=== PATIENT | female | born 1995 | race African-American/Black ===

== ENCOUNTER 2016-09-09 23:25 | Emergency (ER) | payer BC ==
[2016-09-09 23:37] VITALS: BMI 22.5
--- NOTE | 2016-09-10 00:09 | PDOC ---
History of Present Illness <You Guevara - Last Filed: 09/10/16 00:17> - General History Source: Patient Exam Limitations: No Limitations - History of Present Illness Initial Comments: 09/10/16 00:23 Patient is a 21 year old female with no significant past medical history who presents to the ED with left ear pain since yesterday. Patient notes that the pain is inside the ear. She denies any recent swimming. She denies fever or chills. She denies nasal congestion or cough. <Fay aPng - Last Filed: 09/10/16 00:25> - General Chief Complaint: Ear Problem Stated Complaint: EAR PROBLEM Time Seen by Provider: 09/10/16 00:08 Past History - Psycho/Social/Smoking Cessation Hx Anxiety: No Suicidal Ideation: No Smoking Status: No Smoking History: Never smoked Number of Cigarettes Smoked Daily: 0 Hx Alcohol Use: No Drug/Substance Use Hx: No Substance Use Type: None <You Guevara - Last Filed: 09/10/16 00:17> <Fay Pang - Last Filed: 09/10/16 00:25> - Past Medical History Allergies/Adverse Reactions: Allergies Allergy/AdvReac Type Severity Reaction Status Date / Time No Known Allergies Allergy Verified 09/09/16 23:35 Home Medications: Ambulatory Orders Ciprofloxacin HCl/Dexameth [Ciprodex Otic Suspension] 4 drop BID #1 bottle Review of Systems - Review of Systems Able to Perform ROS?: Yes Comments:: 09/10/16 00:24 CONSTITUTIONAL: No fever, no chills, no fatigue EYES: No visual changes ENT: (+)left ear pain. No sore throat CARDIOVASCULAR: No chest pain, no palpitations RESPIRATORY: No cough, no SOB GI: No abdominal pain, no nausea, no vomiting, no constipation, no diarrhea GENITOURINARY: No dysuria, no frequency, no hematuria MUSCULOSKELETAL: No back pain, no joint pain, no myalgias SKIN: No rash NEURO: No headache <Fay Pang - Last Filed: 09/10/16 00:25> *Physical Exam - Vital Signs Last Vital Signs Temp Pulse Resp BP Pulse Ox 98.1 F 71 18 118/64 98 09/09/16 23:35 09/09/16 23:35 09/09/16 23:35 09/09/16 23:35 09/09/16 23:35 <You Guevara - Last Filed: 09/10/16 00:17> - Vital Signs Last Vital Signs Temp Pulse Resp BP Pulse Ox 98.1 F 71 18 118/64 98 09/09/16 23:35 09/09/16 23:35 09/09/16 23:35 09/09/16 23:35 09/09/16 23:35 - Physical Exam Comments: 09/10/16 00:24 CONSTITUTIONAL: Well-appearing; well-nourished; in no apparent distress HEAD: Normocephalic; atraumatic EYES: PERRL; EOM intact ENMT: (+)left ear mild tragus tenderness, edema and debri of the external auditory meatus,TM is normal; normal oropharynx NECK: Supple; non-tender; no cervical lymphadenopathy CARD: Normal S1, S2; no murmurs, rubs, or gallops RESP: Normal chest excursion with respiration; breath sounds clear and equal bilaterally; no wheezes, rhonchi, or rales ABD: Soft, non-distended; non-tender; no palpable organomegaly, no palpable hernias EXT: Normal ROM in all four extremities; non-tender to palpation; distal pulses intact SKIN: Warm, dry, no rash NEURO: No focal neurological deficiencies. <Fay Pang - Last Filed: 09/10/16 00:25> *DC/Admit/Observation/Transfer <You Guevara - Last Filed: 09/10/16 00:17> - Attestations Scribe Attestion: 09/10/16 00:25 Documentation prepared by CARLEEN Daniel, acting as medical staff assistant for You Guevara MD. <Fay Pang - Last Filed: 09/10/16 00:25> Diagnosis at time of Disposition: Otitis externa Qualifiers: Otitis externa type: unspecified type Laterality: left Chronicity: acute Qualified Code(s): H60.502 - Unspecified acute noninfective otitis externa, left ear - Discharge Dispostion Disposition: HOME Condition at time of disposition: Stable - Prescriptions Prescriptions: Ciprofloxacin HCl/Dexameth [Ciprodex Otic Suspension] 4 drop BID #1 bottle - Referrals Referrals: pmd, as needed [Other] - Patient Instructions Printed Discharge Instructions: DI for Otitis Externa
[2016-09-10 01:28] VITALS: BP 120/68; PULSE 68; TEMP 98
== END 2016-09-10 00:33 | disposition home or self-care (01) ==
LOC: JER 23:25
DX: H60.502 Unspecified acute noninfective otitis externa, left ear (principal)
CPT/HCPCS: 99282-25

== ENCOUNTER 2018-05-07 17:04 | Inpatient (IN) | payer BC ==
[2018-05-07 17:15] VITALS: BMI 21.6
--- NOTE | 2018-05-07 17:31 | PDOC ---
History of Present Illness - General History Source: Patient Exam Limitations: No Limitations - History of Present Illness Initial Comments: 05/07/18 18:10 The patient is a 22 year old female, with no significant past medical history, who presents to the emergency department with, 1 day of elevated white count and right lower quadrant pain. As per patient her symptoms onset at 3am as periumbilical pain now as RLQ with associated chills, nausea, diarrhea, lightheadedness. Patient endorses going to urgent care prior to her arrival at which time she received lab work depicting a WBC of 14.9. Patient was advised to report to the ED for further evaluation. She denies recent dysuria, frequency, urgency or hematuria. She denies recent chest pain or shortness of breath. Allergies: NKDA Past surgical history: None reported. Social history: Nonsmoker. Denies EtOH use and recreational drug use. <Jeremy Wilson - Last Filed: 05/07/18 21:13> <Darcie Miller - Last Filed: 05/07/18 22:19> - General Chief Complaint: Pain, Acute Stated Complaint: PCP SENT/ABDOMINAL PAIN Time Seen by Provider: 05/07/18 17:30 Past History <Jeremy Wilson - Last Filed: 05/07/18 21:13> - Past Medical History COPD: No Dialysis: No Disorders: No - Surgical History Cholecystectomy: No GI Surgery: No - Immunization History Immunization Up to Date: No - Suicide/Smoking/Psychosocial Hx Smoking Status: No Smoking History: Never smoked Have you smoked in the past 12 months: No Number of Cigarettes Smoked Daily: 0 Information on smoking cessation initiated: No Hx Alcohol Use: No Drug/Substance Use Hx: No Substance Use Type: None <Darcie Miller - Last Filed: 05/07/18 22:19> - Past Medical History Allergies/Adverse Reactions: Allergies Allergy/AdvReac Type Severity Reaction Status Date / Time No Known Allergies Allergy Verified 05/07/18 19:01 Home Medications: Ambulatory Orders NK [No Known Home Medication] 09/10/16 Review of Systems - Review of Systems Able to Perform ROS?: Yes Comments:: 05/07/18 18:11 CONSTITUTIONAL: Present: Chills. Absent: fever, no fatigue EYES: Absent: visual changes ENT: Absent: ear pain, no sore throat CARDIOVASCULAR: Absent: chest pain, no palpitations RESPIRATORY: Absent: cough, no SOB GI: Present: RLQ pain. Nausea, vomiting, diarrhea. Absent: no constipation GENITOURINARY: Absent: dysuria, no frequency, no hematuria MUSKULOSKELETAL: Absent: back pain, no arthralgia, no myalgia SKIN: Absent: rash NEURO: Present: Lightheadedness. Absent: headache All Other Systems: Reviewed and Negative <Jeremy Wilson - Last Filed: 05/07/18 21:13> *Physical Exam - Vital Signs Last Vital Signs Temp Pulse Resp BP Pulse Ox 98.7 F 88 18 113/63 100 05/07/18 17:12 05/07/18 17:12 05/07/18 17:12 05/07/18 17:12 05/07/18 17:12 - Physical Exam Comments: 05/07/18 18:12 GENERAL: Well developed, well nourished. Awake and alert. No acute distress. HEENT: Normocephalic, atraumatic. PERRLA, EOMI. No conjunctival pallor. Sclera are non- icteric. Moist mucous membranes. Oropharynx is clear. NECK: Supple. Full ROM. No JVD. Carotid pulses 2+ and symmetric, without bruits. No thyromegaly. No lymphadenopathy. CARDIOVASCULAR: Regular rate and rhythm. No murmurs, rubs, or gallops. Distal pulses are 2+ and symmetric. PULMONARY: No evidence of respiratory distress. Lungs clear to auscultation bilaterally. No wheezing, rales or rhonchi. +ABDOMINAL: RLQ tenderness. Soft. Non-distended. No rebound or guarding. No organomegaly. Normoactive bowel sounds. MUSCULOSKELETAL Normal range of motion at all joints. No bony deformities or tenderness. No CVA tenderness. EXTREMITIES: No cyanosis. No clubbing. No edema. No calf tenderness. SKIN: Warm and dry. Normal capillary refill. No rashes. No jaundice. NEUROLOGICAL: Alert, awake, appropriate. Cranial nerves 2-12 intact. No deficits to light touch and temperature in face, upper extremities and lower extremities. No motor deficits in the in face, upper extremities and lower extremities. Normoreflexic in the upper and lower extremities. Normal speech. Toes are down- going bilaterally. Gait is normal without ataxia. PSYCHIATRIC: Cooperative. Good eye contact. Appropriate mood and affect. <Jeremy Wilson - Last Filed: 05/07/18 21:13> - Vital Signs Last Vital Signs Temp Pulse Resp BP Pulse Ox 98.7 F 88 18 113/63 100 05/07/18 17:12 05/07/18 17:12 05/07/18 17:12 05/07/18 17:12 05/07/18 17:12 <Darcie Miller - Last Filed: 05/07/18 22:19> Moderate Sedation - Procedure Monitoring Vital Signs: Procedure Monitoring Vital Signs Temperature 98.7 F 05/07/18 17:12 Pulse Rate 88 05/07/18 17:12 Respiratory Rate 18 05/07/18 17:12 Blood Pressure 113/63 05/07/18 17:12 O2 Sat by Pulse Oximetry (%) 100 05/07/18 17:12 <VicaureliaJeremy larry - Last Filed: 05/07/18 21:13> - Procedure Monitoring Vital Signs: Procedure Monitoring Vital Signs Temperature 98.7 F 05/07/18 17:12 Pulse Rate 88 05/07/18 17:12 Respiratory Rate 18 05/07/18 17:12 Blood Pressure 113/63 05/07/18 17:12 O2 Sat by Pulse Oximetry (%) 100 05/07/18 17:12 <Darcie Miller - Last Filed: 05/07/18 22:19> ED Treatment Course - LABORATORY CBC & Chemistry Diagram: 05/07/18 16:20 05/07/18 16:20 - RADIOLOGY Radiograph Interpretation: 05/07/18 21:13 EXAM: CT abdomen and pelvis with IV contrast. Clinical indication: Rule out appendicitis. There are no prior studies available for comparison. Technique: Axial IV contrast-enhanced CT images of the abdomen and pelvis were obtained followed by coronal and sagittal reformats. Findings: The visualized portions of the lower thorax are within normal limits. There is no free intra-abdominal gas or fluid. The liver, gallbladder, adrenals, pancreas, and spleen are normal. There is no hydronephrosis or obvious renal calculi bilaterally. The bilateral kidneys are normal. There are some mildly prominent small bowel mesenteric lymph nodes measuring up to 0.9 cm in diameter. Otherwise, there are no enlarged abdominal or pelvic lymph nodes, by size criteria. The urinary bladder is unremarkable. There is an IUD within the uterus. The pelvic organs are otherwise grossly unremarkable, given limitations of CT for evaluating them. There is no significant intra-abdominal fat which makes separation of loops of bowel and identification of structures difficult. The appendix is not identified with certainty. Within the lower abdomen just to the right of the midline there is a 0.6 cm calcification which likely represents an appendicolith. This appears to be associated with a elongated soft tissue arising from the cecum. This is best appreciated on axial images 93 through 97. There appears to be a soft tissue abnormality distal to this which could represent a phlegmonous early complicated appendicitis.. The remainder of the bowel is grossly unremarkable. The visualized bony structures are unremarkable for the patient's age. Impression: The appendix is not identified with certainty due to lack of intra-abdominal fat and oral contrast. However, there appears to be an appendicolith within an elongated soft tissues structure which appears to arise from the cecum and likely represents the appendix. Distal to the appendicolith there is a probable phlegmonous area. These findings suggest acute complicated appendicitis. Recommend surgical consult and a targeted sonogram for further evaluation. One or more of the following dose reduction techniques were used: automated exposure control, adjustment of the mA and/or kV according to patient size, use of iterative reconstructive technique. Read by: Wil Rivas MD <Jeremy Wilson - Last Filed: 05/07/18 21:13> - LABORATORY CBC & Chemistry Diagram: 05/07/18 16:20 05/07/18 16:20 <Darcie Miller - Last Filed: 05/07/18 22:19> Medical Decision Making - Medical Decision Making 05/07/18 18:26 22 yo female sent from Urgent care for RLQ pain and elevated wbc 14.9 05/07/18 21:40 ct scan concerning for appendicitis case discussed with Dr Sky and pt will be admitted ,given antibiotics,IVF,NPO <Darcie Miller - Last Filed: 05/07/18 22:19> *DC/Admit/Observation/Transfer - Attestations Scribe Attestion: 05/07/18 18:13 Documentation prepared by Jeremy Wilson, acting as medical office technology instructor for Darcie Miller MD. <Jeremy Wilson - Last Filed: 05/07/18 21:13> - Discharge Dispostion Decision to Admit order: Yes <Darcie Miller - Last Filed: 05/07/18 22:19> Diagnosis at time of Disposition: Appendicitis Qualifiers: Appendicitis type: acute appendicitis Acute appendicitis type: unspecified acute appendicitis type Qualified Code(s): K35.80 - Unspecified acute appendicitis - Discharge Dispostion Condition at time of disposition: Stable
[2018-05-07] MEDS ORDERED: SODIUM CHLORIDE 1,000 ML IV STA (17:35)
[2018-05-07 18:32] LABS: BASO % 0.3 % (0-2.0); HEMATOCRIT 36.4 % (32.4-45.2); HEMOGLOBIN 12.1 GM/dL (10.7-15.3); LYMPH % 9.1 % (8-40); MCH 27.4 pg (25.7-33.7); MCHC 33.2 g/dl (32.0-36.0); MEAN CELL VOLUME 82.5 fl (80-96); MEAN PLT VOLUME 8.2 fl (7.5-11.1); MONO % 10.5 % (3.8-10.2); NEUT % 79.1 % (42.8-82.8); PLATELET COUNT 248 K/MM3 (134-434); RBC 4.41 M/mm3 (3.60-5.2); RDW 13.6 % (11.6-15.6); WHITE BLOOD COUNT 13.8 K/mm3 (4.0-10.0)
[2018-05-07 18:37] LABS: URINE APPEARANCE CLEAR; URINE BILIRUBIN NEGATIVE (<2.0 mg/dL); URINE COLOR STRAW; URINE GLUCOSE (UA) NEGATIVE (NEGATIVE); URINE KETONE NEGATIVE (NEGATIVE); URINE LEUK ESTERASE NEGATIVE (NEGATIVE); URINE NITRITE NEGATIVE (NEGATIVE); URINE PROTEIN NEGATIVE (NEGATIVE); URINE UROBILINOGEN NEGATIVE mg/dL (0.2-1.0)
[2018-05-07 18:55] LABS: ALBUMIN 4.1 g/dl (3.4-5.0); ALK PHOS 75 U/L (45-117); ANION GAP 8 MMOL/L (8-16); BILIRUBIN,TOTAL 0.4 mg/dL (0.2-1); BLOOD UREA NITROGEN 7 mg/dL (7-18); CALCIUM 8.8 mg/dL (8.5-10.1); CHLORIDE 104 mmol/L (98-107); CO2 27 mmol/L (21-32); CREATININE 0.9 mg/dL (0.55-1.3); GLUCOSE,RANDOM 82 mg/dL (74-106); LIPASE 194 U/L (73-393); POTASSIUM 4.1 mmol/L (3.5-5.1); SGOT/AST 15 U/L (15-37); SGPT/ALT 15 U/L (13-61); SODIUM 139 mmol/L (136-145); TOT PROT 8.3 g/dl (6.4-8.2)
[2018-05-07] MEDS ORDERED: PIPERACILLIN/TAZOB 3.375 GM 3.375 GM in DEXTROSE 5%-WATER - 50 ML IVPB ONE (21:20)
[2018-05-07] MEDS ORDERED: PIPERACILLIN/TAZOB 3.375 GM 3.375 GM/50 ML BAG IVPB ONE (21:59)
--- NOTE | 2018-05-07 22:16 | PN ---
Teaching Attending Note Name of Resident: Jana Ornelas ATTENDING PHYSICIAN STATEMENT I saw and evaluated the patient. I reviewed the resident's note and discussed the case with the resident. I agree with the resident's findings and plan as documented. SUBJECTIVE: Seen and examined; please see resident note for further historical information. Briefly, this is a 22 y/o female presenting with abdominal pain found to have complicated appendicitis on CT. Nothing makes pain better or worse, hasn't seen prior physician for this, no recent sgy. She is afebrile and hemodynamically stable. All her questions answered. 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 CT Abdomen/Pelvis prelim read shows the appendix not clearly identified but the apparent appearance of an appendolith within elongated soft tissue structure appearing to arise from the cecum and likely representing the appendiz. Distal to this is a probably phlegmonous area. These findings suggest complicated appendicitis and recommended surgical consult and targeted sonogram. ASSESSMENT AND PLAN: Patient presents with abdominal pain found to have complicated appendicitis 1) Complicated Appendicitis -Noted on imaging; labs reviewed. Hemodynamically stable. -Ultimate management per surgery. NPO, IVF, monitor on med surg. IV Zosyn, ID consult given antipseud coverage -Surgery contacted by ER; appreciate expert opinion. Defer management to their service -Pain control, nausea control, etc. JASON CHASE@75 -PRN replete -NPO -As tolerated Full Code
[2018-05-07] MEDS ORDERED: ACETAMINOPHEN 325 MG TABLET (FP) PO PRN (22:51)
--- NOTE | 2018-05-07 22:59 | HP ---
CHIEF COMPLAINT: bloating x 1 day PCP: HISTORY OF PRESENT ILLNESS: 22 y/o F with no significant PMH who presents to the ED c/o 1 day hx bloating which is a/w generalized abdominal pain. States that her sx started suddenly yesterday. Pain was not a/w nausea, vomiting, diarrhea, or other complaints. Denies SIMPSON, fever, chills, SOB, chest pain or pressure, or changes in urinary or bowel function during this time. Had a similar episode of bloating two weeks prior, however self-resolved. ER course was notable for: (1) zosyn 3.375g x1 (2) CTAP: suggestive of complicated appendicitis (3) Recent Travel: denies PAST MEDICAL HISTORY: none PAST SURGICAL HISTORY: none Social History: Smoking: denies Alcohol: denies Drugs: denies Family History: denies Allergies No Known Allergies Allergy (Verified 05/07/18 19:01) HOME MEDICATIONS: Home Medications Medication Instructions Recorded NK [No Known Home Medication] 09/10/16 REVIEW OF SYSTEMS CONSTITUTIONAL: Absent: fever, chills, diaphoresis, generalized weakness, malaise, loss of appetite, weight change HEENT: Absent: rhinorrhea, nasal congestion, throat pain, throat swelling, difficulty swallowing, mouth swelling, ear pain, eye pain, visual changes CARDIOVASCULAR: Absent: chest pain, syncope, palpitations, irregular heart rate, lightheadedness , peripheral edema RESPIRATORY: Absent: cough, shortness of breath, dyspnea with exertion, orthopnea, wheezing, stridor, hemoptysis GASTROINTESTINAL: +abdominal pain, bloating Absent: abdominal pain, abdominal distension, nausea, vomiting, diarrhea, constipation, melena, hematochezia GENITOURINARY: Absent: dysuria, frequency, urgency, hesitancy, hematuria, flank pain, genital pain MUSCULOSKELETAL: Absent: myalgia, arthralgia, joint swelling, back pain, neck pain SKIN: Absent: rash, itching, pallor HEMATOLOGIC/IMMUNOLOGIC: Absent: easy bleeding, easy bruising, lymphadenopathy, frequent infections ENDOCRINE: Absent: unexplained weight gain, unexplained weight loss, heat intolerance, cold intolerance NEUROLOGIC: Absent: headache, focal weakness or paresthesias, dizziness, unsteady gait, seizure, mental status changes, bladder or bowel incontinence PSYCHIATRIC: Absent: anxiety, depression, suicidal or homicidal ideation, hallucinations. PHYSICAL EXAMINATION Vital Signs - 24 hr 05/07/18 05/07/18 17:12 21:49 Temperature 98.7 F 98.4 F Pulse Rate 88 Pulse Rate [ 87 Right Apical] Respiratory 18 28 H Rate Blood Pressure 113/63 Blood Pressure 126/71 [Left] O2 Sat by Pulse 100 100 Oximetry (%) GENERAL: Pleasant. Awake, alert, and fully oriented, in no acute distress. Sitting up in bed HEAD: Normal with no signs of trauma. EYES: Pupils equal, round and reactive to light, extraocular movements intact, sclera anicteric, conjunctiva clear. EARS, NOSE, THROAT: Ears normal, nares patent, oropharynx clear without exudates. Moist mucous membranes. NECK: Normal range of motion, supple LUNGS: Breath sounds equal, clear to auscultation bilaterally. No wheezes, and no crackles. No accessory muscle use. HEART: Regular rate and rhythm, normal S1 and S2 without murmur, rub or gallop. ABDOMEN: Soft, +RLQ TTP, with mild rebound tenderness. normoactive bowel sounds LOWER EXTREMITIES: 2+ pt pulses, warm, well-perfused. No calf tenderness. No peripheral edema. NEUROLOGICAL: Cranial nerves II-XII intact. Normal speech. PSYCHIATRIC: Cooperative. Good eye contact. Laboratory Results 05/07/18 05/07/18 05/07/18 16:20 16:20 18:20 WBC 13.8 H RBC 4.41 Hgb 12.1 Hct 36.4 MCV 82.5 MCH 27.4 MCHC 33.2 RDW 13.6 Plt Count 248 MPV 8.2 Absolute Neuts (auto) 10.9 H Neutrophils % 79.1 Lymphocytes % 9.1 Monocytes % 10.5 H Eosinophils % 1.0 Basophils % 0.3 Nucleated RBC % 0 Sodium 139 Potassium 4.1 Chloride 104 Carbon Dioxide 27 Anion Gap 8 BUN 7 Creatinine 0.9 Creat Clearance w eGFR > 60 Random Glucose 82 Calcium 8.8 Total Bilirubin 0.4 AST 15 ALT 15 Alkaline Phosphatase 75 Total Protein 8.3 H Albumin 4.1 Lipase 194 Urine Nitrite Ur Leukocyte Esterase Urine HCG, Qual Negative CT Abdomen/Pelvis prelim : appendix not clearly identified but appendolith within elongated soft tissue structure, arising from the cecum and likely representing the appendix. Distal to this is a probable phlegmonous area. These findings suggest complicated appendicitis and recommended surgical consult and targeted sonogram. Abdom sono: completed, report pending EKG: ordered, pending ASSESSMENT/PLAN: 22 y/o F with no significant PMH who presents to the ED c/o 1 day hx bloating which is a/w generalized abdominal pain. #Complicated appendicitis -with elevated white ct, however without tachy, or hypotension -CTAP suggestive of complicated appendicitis, however f/u further imaging with abdom sono -IV LR 75 cc/hr -NPO, T+S, coags -will tx with zosyn 3.375g IVPB q6h -ID consult: Dr. Quinn -Tylenol PRN for pain #F/E/N IV LR 75 cc/hr continue to follow lytes NPO #PPX SCD's #Dispo med-surg Visit type - Emergency Visit Emergency Visit: Yes ED Registration Date: 05/07/18 Care time: The patient presented to the Emergency Department on the above date and was hospitalized for further evaluation of their emergent condition. - New Patient This patient is new to me today: Yes Date on this admission: 05/08/18 - Critical Care Critical Care patient: No
--- NOTE | 2018-05-07 23:41 | PDOC ---
*Physical Exam - Vital Signs Last Vital Signs Temp Pulse Resp BP Pulse Ox 98.4 F 87 28 H 126/71 100 05/07/18 21:49 05/07/18 21:49 05/07/18 21:49 05/07/18 21:49 05/07/18 21:49 ED Treatment Course - LABORATORY CBC & Chemistry Diagram: 05/07/18 16:20 05/07/18 16:20 - ADDITIONAL ORDERS Additional order review: Laboratory Results 05/07/18 05/07/18 05/07/18 18:20 18:20 16:20 Sodium 139 Potassium 4.1 Chloride 104 Carbon Dioxide 27 Anion Gap 8 BUN 7 Creatinine 0.9 Creat Clearance w eGFR > 60 Random Glucose 82 Calcium 8.8 Total Bilirubin 0.4 AST 15 ALT 15 Alkaline Phosphatase 75 Total Protein 8.3 H Albumin 4.1 Lipase 194 Urine Color Straw Urine Appearance Clear Urine pH 7.0 Ur Specific [place] 1.005 L Urine Protein Negative Urine Glucose (UA) Negative Urine Ketones Negative Urine Blood Negative Urine Nitrite Negative Urine Bilirubin Negative Urine Urobilinogen Negative Ur Leukocyte Esterase Negative Urine HCG, Qual Negative 05/07/18 16:20 RBC 4.41 MCV 82.5 MCHC 33.2 RDW 13.6 MPV 8.2 Neutrophils % 79.1 Lymphocytes % 9.1 Monocytes % 10.5 H Eosinophils % 1.0 Basophils % 0.3 - RADIOLOGY Radiology Studies Ordered: Category Date Time Status ABDOMEN & PELVIS CT WITH CONTR [CT] Stat CT Scan 05/07/18 19:08 Taken - Medications Given in the ED: ED Medications Discontinued Medications Generic Name Dose Route Start Last Admin Trade Name Freq PRN Reason Stop Dose Admin Sodium Chloride 1,000 mls @ 1,000 mls/hr 05/07/18 17:35 05/07/18 18:30 Normal Saline - IV 05/07/18 18:34 1,000 mls/hr ASDIR STA Administration Piperacillin Sod/Tazobactam 50 mls @ 100 mls/hr 05/07/18 21:20 05/07/18 22:21 Sod 3.375 gm/ Dextrose IVPB 05/07/18 21:49 100 mls/hr ONCE ONE Administration Protocol *DC/Admit/Observation/Transfer Diagnosis at time of Disposition: Appendicitis Qualifiers: Appendicitis type: acute appendicitis Acute appendicitis type: unspecified acute appendicitis type Qualified Code(s): K35.80 - Unspecified acute appendicitis - Discharge Dispostion Condition at time of disposition: Stable Decision to Admit order: Yes - Referrals - Patient Instructions - Post Discharge Activity
[2018-05-08] MEDS: LACTATED RINGERS SOLUTION 1,000 ML IV SCH ×3 (01:52→18:05)
[2018-05-08] MEDS ORDERED: PIPERACILLIN/TAZOB 3.375 GM 3.375 GM/50 ML BAG IVPB ONE (03:09)
[2018-05-08] MEDS: PIPERACILLIN/TAZOB 3.375 GM 3.375 GM in DEXTROSE 5%-WATER - 50 ML IVPB SCH ×6 (03:22→21:57)
[2018-05-08 05:34] LABS: INR 1.33 (0.83-1.09); PROTHROMBIN TIME (PATIENT) 15.7 SEC (9.7-13.0)
[2018-05-08 07:01] LABS: BASO % 0.3 % (0-2.0); EOS % 1.1 % (0-4.5); HEMATOCRIT 32.6 % (32.4-45.2); HEMOGLOBIN 10.8 GM/dL (10.7-15.3); LYMPH % 14.9 % (8-40); MCH 27.4 pg (25.7-33.7); MCHC 33.1 g/dl (32.0-36.0); MEAN CELL VOLUME 82.9 fl (80-96); MEAN PLT VOLUME 8.5 fl (7.5-11.1); NEUT % 73.7 % (42.8-82.8); PLATELET COUNT 218 K/MM3 (134-434); RBC 3.93 M/mm3 (3.60-5.2); RDW 13.5 % (11.6-15.6); WHITE BLOOD COUNT 13.2 K/mm3 (4.0-10.0)
[2018-05-08 07:37] LABS: ANION GAP 7 MMOL/L (8-16); BLOOD UREA NITROGEN 6 mg/dL (7-18); CALCIUM 8.5 mg/dL (8.5-10.1); CHLORIDE 106 mmol/L (98-107); CO2 26 mmol/L (21-32); CREATININE 0.9 mg/dL (0.55-1.3); GLUCOSE,RANDOM 76 mg/dL (74-106); MAGNESIUM 1.8 mg/dL (1.8-2.4); PHOSPHOROUS 3.6 mg/dL (2.5-4.9); POTASSIUM 3.7 mmol/L (3.5-5.1); SODIUM 139 mmol/L (136-145)
--- NOTE | 2018-05-08 08:09 | CONSULT ---
- Consultation REQUESTING PROVIDER: CONSULT REQUEST: We have been asked to surgically evaluate this patient for abdominal pain. PCP:Luis Wells MD HISTORY OF PRESENT ILLNESS: 22 y/o F with no significant PMH who presents to the ED c/o 2 day hx bloating and difuse abdominal pain. States that her sx started suddenly yesterday. Pain was not associated with nausea, vomiting, diarrhea, or other complaints. Denies SIMPSON, fever, chills, SOB, chest pain or pressure, or changes in urinary or bowel function during this time. Had a similar episode of bloating two weeks prior, however self-resolved. Recent Travel: denies PAST MEDICAL HISTORY: none PAST SURGICAL HISTORY: none Social History: Smoking: denies Alcohol: denies Drugs: denies PMHx: none PSHx: none Home Medications Medication Instructions Recorded NK [No Known Home Medication] 09/10/16 Allergies Allergy/AdvReac Type Severity Reaction Status Date / Time No Known Allergies Allergy Verified 05/07/18 19:01 REVIEW OF SYSTEMS: CONSTITUTIONAL: Absent: fever, chills, diaphoresis, generalized weakness, malaise, weight change CARDIOVASCULAR: Absent: chest pain, syncope, palpitations, peripheral edema RESPIRATORY: Absent: cough, shortness of breath, dyspnea with exertion, GASTROINTESTINAL: Absent: constipation, melena, GENITOURINARY: Absent: dysuria, frequency, urgency, hesitancy, hematuria, MUSCULOSKELETAL: Absent: myalgia, arthralgia, joint swelling, back pain, neck pain SKIN: Absent: rash, itching, pallor HEMATOLOGIC/IMMUNOLOGIC: Absent: easy bleeding, easy bruising, lymphadenopathy NEUROLOGIC: Absent: headache, focal weakness, paresthesias, dizziness, unsteady gait, seizure, mental status changes, bladder or bowel incontinence PSYCHIATRIC: Absent: anxiety, depression, suicidal or homicidal ideation, hallucinations. PHYSICAL EXAM: GENERAL: Awake, alert, and fully oriented, in no acute distress. HEAD: Normal with no signs of trauma. EYES: sclera anicteric, conjunctiva clear. LUNGS: No auditory wheezes, Unlabored resp on RA, No accessory muscle use. ABDOMEN: Soft, non distended, focal tenderness over RLQ, no guarding, no rebound, no masses. No organomegaly. MUSCULOSKELETAL: moving all extremities without limitation UPPER EXTREMITIES: 2+ pulses, warm, well-perfused. No cyanosis. Cap refill <2 seconds. No peripheral edema. LOWER EXTREMITIES: 2+ pulses, warm, well-perfused. No calf tenderness. peripheral edema. NEUROLOGICAL: Normal speech, gait not observed. PSYCH: Cooperative. Good eye contact. Appropriate mood and affect. SKIN: Warm, dry, normal turgor, no rashes or lesions noted. Vital Signs Temperature 99.3 F 05/08/18 06:16 Pulse Rate 78 05/08/18 06:16 Respiratory Rate 18 05/08/18 06:16 Blood Pressure 119/71 05/08/18 06:16 O2 Sat by Pulse Oximetry (%) 100 05/08/18 04:32 Lab Results WBC 13.2 K/mm3 (4.0-10.0) H 05/08/18 05:30 RBC 3.93 M/mm3 (3.60-5.2) 05/08/18 05:30 Hgb 10.8 GM/dL (10.7-15.3) 05/08/18 05:30 Hct 32.6 % (32.4-45.2) 05/08/18 05:30 MCV 82.9 fl (80-96) 05/08/18 05:30 MCHC 33.1 g/dl (32.0-36.0) 05/08/18 05:30 RDW 13.5 % (11.6-15.6) 05/08/18 05:30 Plt Count 218 K/MM3 (134-434) 05/08/18 05:30 Sodium 139 mmol/L (136-145) 05/08/18 05:30 Potassium 3.7 mmol/L (3.5-5.1) 05/08/18 05:30 Chloride 106 mmol/L (98-107) 05/08/18 05:30 Carbon Dioxide 26 mmol/L (21-32) 05/08/18 05:30 Anion Gap 7 MMOL/L (8-16) L 05/08/18 05:30 BUN 6 mg/dL (7-18) L 05/08/18 05:30 Creatinine 0.9 mg/dL (0.55-1.3) 05/08/18 05:30 Random Glucose 76 mg/dL (74-106) 05/08/18 05:30 Calcium 8.5 mg/dL (8.5-10.1) 05/08/18 05:30 Blood Type O POSITIVE 05/08/18 04:25 Antibody Screen Negative 05/08/18 04:25 INR 1.33 (0.83-1.09) H 05/08/18 04:25 CT scan findings suspicious for acute appendicitis Problem List - Problems (1) Appendicitis Assessment/Plan: Acute appendicitis. 1) NPO except sips with meds for OR today with Dr Sky 2) Pain control 3) ABX per medicine Evaluation and plan discussed with Dr Sky Code(s): K37 - UNSPECIFIED APPENDICITIS Qualifiers: Appendicitis type: acute appendicitis Acute appendicitis type: unspecified acute appendicitis type Qualified Code(s): K35.80 - Unspecified acute appendicitis
[2018-05-08] MEDS ORDERED: DEXTROSE 5%-WATER - 50 ML IVPB ONE ×2 (08:32→21:19)
[2018-05-08] MEDS ORDERED: PIPERACILLIN/TAZOBACTAM 3.375 GM VIAL IVPB ONE ×2 (08:32→21:19)
--- NOTE | 2018-05-08 10:47 | EKG ---
Test Reason : Blood Pressure : / mmHG Vent. Rate : 078 BPM Atrial Rate : 078 BPM P-R Int : 136 ms QRS Dur : 078 ms QT Int : 394 ms P-R-T Axes : 057 056 003 degrees QTc Int : 449 ms NORMAL SINUS RHYTHM WITH SINUS ARRHYTHMIA NORMAL ECG NO PREVIOUS ECGS AVAILABLE Confirmed by ROSSY IBRAHIM MD ([id number]) on 05/08/2018 10:47:00 AM Referred By: Confirmed By:ROSSY IBRAHIM MD
[2018-05-08] MEDS ORDERED: PROPOFOL 20 ML ONE (11:36)
[2018-05-08] MEDS ORDERED: MIDAZOLAM HCL 2 MG/2 ML SINGLE DOSE VIAL ONE (11:36)
[2018-05-08] MEDS ORDERED: ROCURONIUM BROMIDE 50 MG/5 ML VIAL ONE (11:36)
[2018-05-08] MEDS ORDERED: fentaNYL CITRATE 250 MCG/5 ML VIAL ONE (11:36)
[2018-05-08] MEDS ORDERED: DEXAMETHASONE SOD PHOSPHATE 4 MG/1 ML VIAL ONE (11:37)
[2018-05-08] MEDS ORDERED: LIDOCAINE HCL/PF 2% SDV 5ML VIAL ONE (11:37)
[2018-05-08] MEDS ORDERED: BUPIVACAINE HCL/PF 0.5% (5MG/ML) 10 ML VIAL ONE (11:54)
[2018-05-08] MEDS ORDERED: LIDOCAINE HCL 1%, 10 MG/ML (20ML VIAL) ONE (11:54)
--- NOTE | 2018-05-08 12:25 | PN ---
Progress Note (short form) - Note Progress Note: Attending Surgeon For lap possible open appendectomy; r/b/t/a/'s d/w the patient and her mother and informed consent obtained; allimaging studies and notes to date reviewed and exam c/w acute appendicitis. Rafa Sky MD FACS
[2018-05-08] MEDS ORDERED: BUPIVACAINE HCL/PF (5 MG/ML) 30 ML VIAL IJ ONE (12:49)
[2018-05-08] MEDS ORDERED: LIDOCAINE HCL 1%, 10 MG/ML (50 mL VIAL) IJ ONE (12:49)
--- NOTE | 2018-05-08 13:13 | CON.ID ---
Consult Consult Specialty:: infectious diseases Referred by:: hospitalist Reason for Consultation:: ac appendicitis - History of Present Illness Chief Complaint: abd pain History of Present Illness: 22 y/o F with no significant PMH who presents to the ED c/o 1 day hx bloating which is a/w generalized abdominal pain. States that her sx started suddenly yesterday. Pain was not a/w nausea, vomiting, diarrhea, or other complaints. Denies SIMPSON, fever, chills, SOB, chest pain or pressure, or changes in urinary or bowel function during this time. Had a similar episode of bloating two weeks prior, however self-resolved. patient was worked up found to have acute appendicitis ,surgery has seen the patient patient was taken to the operating room--surgery done--patient has a rubio drain in place c/o of acute pain - History Source History Provided By: Patient, Family Member Limitations to Obtaining History: No Limitations - Alcohol/Substance Use Hx Alcohol Use: No - Smoking History Smoking history: Never smoked Have you smoked in the past 12 months: No Aproximately how many cigarettes per day: 0 Home Medications - Allergies Allergies/Adverse Reactions: Allergies Allergy/AdvReac Type Severity Reaction Status Date / Time No Known Allergies Allergy Verified 05/07/18 19:01 - Home Medications Home Medications: Ambulatory Orders NK [No Known Home Medication] 09/10/16 Review of Systems - Review of Systems Constitutional: reports: No Symptoms Eyes: reports: No Symptoms HENT: reports: No Symptoms Neck: reports: No Symptoms Cardiovascular: reports: No Symptoms Respiratory: reports: No Symptoms Gastrointestinal: reports: Abdominal Pain Genitourinary: reports: No Symptoms Breasts: reports: No Symptoms Reported Musculoskeletal: reports: No Symptoms Integumentary: reports: No Symptoms Neurological: reports: No Symptoms Endocrine: reports: No Symptoms Hematology/Lymphatic: reports: No Symptoms Psychiatric: reports: No Symptoms Physical Exam Vital Signs: Vital Signs Temperature 98.9 F 05/08/18 10:00 Pulse Rate 75 05/08/18 10:00 Respiratory Rate 18 05/08/18 10:00 Blood Pressure 112/66 05/08/18 10:00 O2 Sat by Pulse Oximetry (%) 100 05/08/18 04:32 Constitutional: Yes: Well Nourished, Calm, Mild Distress Eyes: Yes: Conjunctiva Clear Neck: Yes: Supple, Trachea Midline Cardiovascular: Yes: Regular Rate and Rhythm Respiratory: Yes: Regular, CTA Bilaterally Gastrointestinal: Yes: Soft, Tenderness, Other (absent bowel sounds). No: Tenderness, Rebound Musculoskeletal: Yes: WNL Extremities: Yes: WNL Wound/Incision: Yes: Dressing Dry and Intact Neurological: Yes: Alert, Oriented Psychiatric: Yes: Alert, Oriented Labs: CBC, BMP 05/08/18 05:30 05/08/18 05:30 Imaging - Results Cat Scan: Report Reviewed, Image Reviewed Ultrasound: Report Reviewed, Image Reviewed Assessment/Plan Problem List - Problems (1) Appendicitis Code(s): K37 - UNSPECIFIED APPENDICITIS abd pain leukocytosis plan will start patient on iv abx await for cx report post op patient with pain
[2018-05-08] MEDS ORDERED: NEOSTIGMINE METHYLSULFATE 0.5 MG/ML - 10 ML MDV ONE (14:59)
[2018-05-08] MEDS ORDERED: GLYCOPYRROLATE 0.2 MG/1 ML VIAL ONE (14:59)
[2018-05-08] MEDS ORDERED: ONDANSETRON 4 MG/2 ML VIAL IVPUSH PRN ×2 (15:20→17:45)
[2018-05-08] MEDS ORDERED: HYDROmorphone HCl 2 MG/ML VIAL ONE (15:37)
[2018-05-08] MEDS: HYDROmorphone HCL CARPU-JECT 2 MG/1 ML DISP.SYRIN IVPUSH PRN ×2 (15:40→15:50)
--- NOTE | 2018-05-08 15:45 | PN ---
Progress Note, Physician Chief Complaint: Seeing Miss Zelaya post surgery, complaining of a significant amount of abdominal pain. No cp or sob. - Current Medication List Current Medications: Active Medications Acetaminophen (Tylenol -) 650 mg PO Q4H PRN PRN Reason: PAIN LEVEL 7 - 10 Fentanyl (Sublimaze Injection -) 50 mcg IVPUSH [id number] PRN PRN Reason: PAIN-PACU ORDER X 4 DOSES ONLY Lactated Ringer's (Lactated Ringers Solution) 1,000 mls @ 75 mls/hr IV ASDIR JANETTE Last Admin: 05/08/18 01:52 Dose: 75 mls/hr Piperacillin Sod/Tazobactam (Sod 3.375 gm/ Dextrose) 50 mls @ 100 mls/hr IVPB Q6H JANETTE; Protocol Piperacillin Sod/Tazobactam (Sod 3.375 gm/ Dextrose) 50 mls @ 100 mls/hr IVPB Q6H-IV JANETTE; Protocol Stop: 05/08/18 21:29 Last Admin: 05/08/18 08:58 Dose: 100 mls/hr Ondansetron HCl (Zofran Injection) 4 mg IVPUSH Q6H PRN PRN Reason: NAUSEA AND/OR VOMITING - Objective Vital Signs: Vital Signs Temperature 37.2 C 05/08/18 10:00 Pulse Rate 75 05/08/18 10:00 Respiratory Rate 18 05/08/18 10:00 Blood Pressure 112/66 05/08/18 10:00 O2 Sat by Pulse Oximetry (%) 100 05/08/18 04:32 Constitutional: Yes: Well Nourished, No Distress, Moderate Distress Cardiovascular: Yes: Regular Rate and Rhythm. No: Gallop, Murmur, Rub Respiratory: Yes: Regular, CTA Bilaterally. No: Rales, Rhonchi, Wheezes Gastrointestinal: Yes: Hypoactive Bowel Sounds, Other (drain in place) Extremities: Yes: WNL Edema: No Labs: CBC, BMP 05/08/18 05:30 05/08/18 05:30 INR, PTT INR 1.33 (0.83-1.09) H 05/08/18 04:25 Problem List - Problems (1) Appendicitis Assessment/Plan: -Ms Zelaya found to have appendicitis with abscess -per surgical PA, abscess ruptured during appendectomy -drain in place -ID following and continue zosyn -pain management per surgery -IVF -currently npo Code(s): K37 - UNSPECIFIED APPENDICITIS Qualifiers: Appendicitis type: acute appendicitis Acute appendicitis type: with localized peritonitis Appendicitis gangrene presence: without gangrene Appendicitis perforation presence: with perforation Appendicitis abscess presence: with abscess Qualified Code(s): K35.33 - Acute appendicitis with perforation and localized peritonitis, with abscess
[2018-05-08] MEDS ORDERED: KETOROLAC TROMETHAMINE 30 MG/1 ML VIAL ONE (15:57)
[2018-05-08] MEDS ORDERED: ACETAMINOPHEN INJECTION 100 ML IVPB ONE (15:57)
--- NOTE | 2018-05-08 15:58 | OP ---
Operative Note - Note: Operative Date: 05/08/18 Pre-Operative Diagnosis: gangrenous appendicitis Operation: laparoscopic appendectomy Post-Operative Diagnosis: Same as Pre-op Surgeon: Rafa Sky Pump Service Supervisor: Niki Larios Anesthesiologist/WEIGHER BULKER: Jeanna Kang Anesthesia: General Specimens Removed: appendix Estimated Blood Loss (mls): 50 Drains & Tubes with Location: TERRA drain LLQ Fluid Volume Replaced (mls): 800 Operative Report Dictated: Yes
[2018-05-08] MEDS: KETOROLAC TROMETHAMINE 30 MG/1 ML VIAL IVPUSH PRN (16:00)
--- NOTE | 2018-05-08 16:00 | SURG ---
Surgery Executive Account Manager Note Executive Account Manager: Niki Larios PA-C Date of Service: 05/08/18 Diagnosis: gangrenous appendicitis Procedure: Laparoscopic appendectomy I was present for the entirety of the operative procedure. For further detail, please refer to operative report. Visit type - Case Type Case Type: ED Admission - Emergency Emergency Visit: Yes ED Registration Date: 05/07/18 Care time: The patient presented to the Emergency Department on the above date and was hospitalized for further evaluation of their emergent condition. - New patient This patient is new to me today: Yes Date on this admission: 05/08/18
[2018-05-08] MEDS: ACETAMINOPHEN 1000 MG/100 ML VIAL (NON FORMULARY) IVPB PRN (16:15)
[2018-05-08] MEDS: MORPHINE SULFATE 2 MG/ML VIAL IVPUSH PRN ×2 (18:24→21:58)
[2018-05-09] MEDS: ACETAMINOPHEN 1000 MG/100 ML VIAL (NON FORMULARY) IVPB PRN (01:13)
[2018-05-09] MEDS ORDERED: PIPERACILLIN/TAZOBACTAM 3.375 GM VIAL IVPB ONE ×4 (01:52→20:04)
[2018-05-09] MEDS ORDERED: DEXTROSE 5%-WATER - 50 ML IVPB ONE ×4 (01:53→20:04)
[2018-05-09] MEDS: PIPERACILLIN/TAZOB 3.375 GM 3.375 GM in DEXTROSE 5%-WATER - 50 ML IVPB SCH ×4 (02:26→20:17)
[2018-05-09] MEDS: MORPHINE SULFATE 2 MG/ML VIAL IVPUSH PRN ×3 (07:03→20:15)
[2018-05-09 07:59] LABS: BASO % 0.2 % (0-2.0); EOS % 0.4 % (0-4.5); HEMATOCRIT 30.9 % (32.4-45.2); HEMOGLOBIN 10.2 GM/dL (10.7-15.3); LYMPH % 10.3 % (8-40); MCH 27.2 pg (25.7-33.7); MCHC 32.9 g/dl (32.0-36.0); MEAN CELL VOLUME 82.6 fl (80-96); MEAN PLT VOLUME 8.7 fl (7.5-11.1); MONO % 8.1 % (3.8-10.2); PLATELET COUNT 209 K/MM3 (134-434); RBC 3.74 M/mm3 (3.60-5.2); RDW 13.6 % (11.6-15.6); WHITE BLOOD COUNT 14.7 K/mm3 (4.0-10.0)
[2018-05-09 08:28] LABS: ANION GAP 9 MMOL/L (8-16); BLOOD UREA NITROGEN 8 mg/dL (7-18); CHLORIDE 102 mmol/L (98-107); CO2 26 mmol/L (21-32); CREATININE 0.8 mg/dL (0.55-1.3); GLUCOSE,RANDOM 74 mg/dL (74-106); MAGNESIUM 1.8 mg/dL (1.8-2.4); PHOSPHOROUS 3.8 mg/dL (2.5-4.9); POTASSIUM 3.8 mmol/L (3.5-5.1); SODIUM 137 mmol/L (136-145)
--- NOTE | 2018-05-09 09:52 | PN ---
Progress Note (short form) - Note Progress Note: POD 1, S/P laparoscopic appendectomy Pt seen and examined. States she is having pain this morning, 11/18, improved with pain meds. Has been oob without issue. Voiding without issue. Passed minimal gas. Denies cp/sob, n/v/d, calf pain/edema. Vital Signs Temp 98.6 F 05/09/18 07:02 Pulse 72 05/09/18 07:02 Resp 20 05/09/18 07:02 BP 93/52 L 05/09/18 07:02 Pulse Ox 100 05/08/18 17:30 Intake & Output 05/08/18 05/08/18 05/09/18 11:59 23:59 11:59 Intake Total 1150 Output Total 570 270 Balance 580 -270 Weight 138 lb Intake: IV 1150 Output: Drainage 420 70 Left 70 70 Urine 100 200 Void 100 200 Estimated Blood Loss 50 Other: Voiding Method Toilet Toilet Height 5 ft 7 in Body Mass Index (BMI) 21.6 Weight Measurement Method Built in [facility] CBC, BMP 05/09/18 06:37 05/09/18 06:37 Gen: Awake, alert, nad Resp: CTA b/l CV: rrr, s1s2 Abdo: +guarding with initial exam, abdomen soft/nt/nd, relaxed without guarding after a few minutes of discussion regarding pain. +hypoactive bowel sounds. Dressings c/d/i, TERRA drain stripped, minimal serosanguinous drainage in reservoir. A/P: 22 y/o F w/ no significant PMHx now admitted 05/07 with abdominal pain, found to have acute appendicitis, now POD 1, s/p laparoscopic appendectomy, found to have gangrenous appendicitis. Afebrile, WBC increasing 14.7 (13.2 yesterday), no L shift, ?inflammatory d/t surgery. Remainder of VSS. Terra output 70ml overnight -Continue IV abx per ID -Keep Terra in place, monitor I&Os -OOB ad cha -DVT prophylaxis with b/l scds, can give Heparin SQ if needed, per primary team -Advance diet to clears -Pain control with Tylenol 650mg q4hrs prn, toradol 30mg q6hrs, morphine 2mg q3hrs for btp -Zofran 4mg q6hrs prn n/v -Remainder of plan per primary team d/w attending Dr Sky
[2018-05-09] MEDS: KETOROLAC TROMETHAMINE 30 MG/1 ML VIAL IVPUSH PRN (10:37)
--- NOTE | 2018-05-09 12:44 | PN ---
Progress Note, Physician Chief Complaint: doing well post op no issues pain at the site drain in place - Current Medication List Current Medications: Active Medications Acetaminophen (Ofirmev Injection -) 1,000 mg IVPB Q6H PRN PRN Reason: PAIN LEVEL 1-5 Last Admin: 05/09/18 01:13 Dose: 1,000 mg Acetaminophen (Tylenol -) 650 mg PO Q4H PRN PRN Reason: FEVER Fentanyl (Sublimaze Injection -) 50 mcg IVPUSH [id number] PRN PRN Reason: PAIN-PACU ORDER X 4 DOSES ONLY Piperacillin Sod/Tazobactam (Sod 3.375 gm/ Dextrose) 50 mls @ 100 mls/hr IVPB Q6H-IV JANETTE; Protocol Last Admin: 05/09/18 08:30 Dose: 100 mls/hr Lactated Ringer's (Lactated Ringers Solution) 1,000 mls @ 125 mls/hr IV ASDIR JANETTE Last Admin: 05/08/18 18:05 Dose: Not Given Ketorolac Tromethamine (Toradol Injection -) 30 mg IVPUSH Q6H PRN PRN Reason: PAIN LEVEL 6-10 Stop: 05/13/18 15:45 Last Admin: 05/09/18 10:37 Dose: 30 mg Morphine Sulfate (Morphine Sulfate) 2 mg IVPUSH Q3H PRN PRN Reason: breakthrough Last Admin: 05/09/18 07:03 Dose: 2 mg Ondansetron HCl (Zofran Injection) 4 mg IVPUSH Q6H PRN PRN Reason: NAUSEA AND/OR VOMITING - Objective Vital Signs: Vital Signs Temperature 97.7 F 05/09/18 10:29 Pulse Rate 62 05/09/18 11:58 Respiratory Rate 16 05/09/18 11:58 Blood Pressure 116/62 05/09/18 11:58 O2 Sat by Pulse Oximetry (%) 100 05/08/18 17:30 Constitutional: Yes: No Distress, Calm Cardiovascular: Yes: Regular Rate and Rhythm Respiratory: Yes: Regular, CTA Bilaterally Gastrointestinal: Yes: Soft, Hypoactive Bowel Sounds, Other (drain in place) Musculoskeletal: Yes: WNL Extremities: Yes: WNL Wound/Incision: Yes: Clean/Dry Neurological: Yes: Alert, Oriented Psychiatric: Yes: Alert, Oriented Labs: CBC, BMP 05/09/18 06:37 05/09/18 06:37 INR, PTT INR 1.33 (0.83-1.09) H 05/08/18 04:25 Assessment/Plan Problem List - Problems (1) Appendicitis Code(s): K37 - UNSPECIFIED APPENDICITIS abd pain leukocytosis plan continue abx monitor draiange monitor wbc rest as per the team
--- NOTE | 2018-05-09 13:00 | PN ---
Physical Exam: SUBJECTIVE: Patient seen and examined by me at bedside. No acute events overnight. S/P Appendectomy POD #2, Still complains of abdominal pain but adequate pain control with pain medications. (+) Flatus but no bowel movement yet. Has not tried to drink liquids but will attempt Otherwise, denies any fever, chills, nausea, vomiting, chest pain, palpitations , shortness of breath, headaches, loss of consciousness, dizziness, dysuria, hematuria, frequency. OBJECTIVE: Vital Signs Period Temp Pulse Resp BP Sys/Jesus Pulse Ox Last 24 Hr 97.7 F-98.7 F 56-89 10-20 93-124/48-80 100-100 GENERAL: The patient is awake, alert, and fully oriented, in no acute distress. EYES: Sclera anicteric, conjunctiva clear. ENT: Oropharynx clear without exudates, moist mucous membranes. LUNGS: CTA b/l, no wheezes, no crackles, no accessory muscle use. HEART: RRR, normal S1 and S2 without murmur, rub or gallop. ABDOMEN: Soft, TTP in RLQ, Slightly distended, hypoactive bowel sounds. (+) right TERRA drain in RLQ with sanguinous fluids draining (15cc). Surgical dressing with sanguinous drainage EXTREMITIES: No edema. Laboratory Results CBC, BMP 05/09/18 06:37 05/09/18 06:37 Active Medications Generic Name Dose Route Start Last Admin Trade Name Freq PRN Reason Stop Dose Admin Acetaminophen 1,000 mg 05/08/18 15:45 05/09/18 01:13 Ofirmev Injection - IVPB 1,000 mg Q6H PRN Administration PAIN LEVEL 1-5 Acetaminophen 650 mg 05/08/18 15:51 Tylenol - PO Q4H PRN FEVER Fentanyl 50 mcg 05/08/18 17:45 Sublimaze Injection - IVPUSH [id number] PRN PAIN-PACU ORDER X 4 DOSES ONLY Piperacillin Sod/Tazobactam 50 mls @ 100 mls/hr 05/08/18 21:00 05/09/18 08:30 Sod 3.375 gm/ Dextrose IVPB 100 mls/hr Q6H-IV JANETTE Administration Protocol Lactated Ringer's 1,000 mls @ 125 mls/hr 05/08/18 17:45 05/08/18 18:05 Lactated Ringers Solution IV Not Given ASDIR JANETTE Ketorolac Tromethamine 30 mg 05/08/18 15:46 05/09/18 10:37 Toradol Injection - IVPUSH 05/13/18 15:45 30 mg Q6H PRN Administration PAIN LEVEL 6-10 Morphine Sulfate 2 mg 05/08/18 15:47 05/09/18 07:03 Morphine Sulfate IVPUSH 2 mg Q3H PRN Administration breakthrough Ondansetron HCl 4 mg 05/08/18 17:45 Zofran Injection IVPUSH Q6H PRN NAUSEA AND/OR VOMITING ASSESSMENT/PLAN: Patient is a 22 year old female who presented for abdominal pain and CT revealed Appendicitis. Patient admitted for further monitoring and management. Complicated Appendicitis -S/P Appendectomy POD #2 -Patient found to have appendicitis with abscess on imaging. Abscess then ruptured during appendectomy. -TERRA in place and draining (40cc's emptied at 10am today, As of 1300 today 15cc drained) -Continue Zosyn 3.375gm Q6H IVPB (Day #2) -Continue pain control with Morphine 2mg IVP Q3H, Toradol 30mg IVP Q6H PRN, Tylenol 650mg PO Q6H PRN -Continue IV LR @125mls/hr -On clear liquid diet F/E/N -IV LR @125mls/hr -Electrolytes wnl -Clear liquids Prophylaxis -SCD's for DVT -No GI required Disposition -Full code -Still has abdominal pain with elevated WBC's . Continue IV Abx Danette Nam [id number] Visit type - Emergency Visit Emergency Visit: Yes ED Registration Date: 05/07/18 Care time: The patient presented to the Emergency Department on the above date and was hospitalized for further evaluation of their emergent condition. - New Patient This patient is new to me today: Yes Date on this admission: 05/09/18 - Critical Care Critical Care patient: No
--- NOTE | 2018-05-09 14:41 | PN ---
Teaching Attending Note Name of Resident: Danette Nam ATTENDING PHYSICIAN STATEMENT I saw and evaluated the patient. I reviewed the resident's note and discussed the case with the resident. I agree with the resident's findings and plan as documented. SUBJECTIVE: Ms Zelaya complains of abdominal pain. Denies cp and sob OBJECTIVE: Last Vital Signs Temp Pulse Resp BP Pulse Ox 36.9 C 66 18 107/58 L 100 05/09/18 14:54 05/09/18 14:54 05/09/18 14:54 05/09/18 14:54 05/08/18 17:30 Gen: nad Pulm: ctab w/o w/r/r CV: rrr w/o m/r/g Abd: hypoactive bowel sounds, TTP w/o g/r Ext: no c/c/e CBC, BMP 05/09/18 06:37 05/09/18 06:37 ASSESSMENT AND PLAN: (1) Appendicitis Assessment/Plan: -still with pain but improving -continue zosyn -continue hydration Code(s): K37 - UNSPECIFIED APPENDICITIS Qualifiers: Appendicitis type: acute appendicitis Acute appendicitis type: with localized peritonitis Appendicitis gangrene presence: without gangrene Appendicitis perforation presence: with perforation Appendicitis abscess presence: with abscess Qualified Code(s): K35.33 - Acute appendicitis with perforation and localized peritonitis, with abscess Problem List - Problems (1) Appendicitis Code(s): K37 - UNSPECIFIED APPENDICITIS Qualifiers: Appendicitis type: acute appendicitis Acute appendicitis type: with localized peritonitis Appendicitis gangrene presence: without gangrene Appendicitis perforation presence: with perforation Appendicitis abscess presence: with abscess Qualified Code(s): K35.33 - Acute appendicitis with perforation and localized peritonitis, with abscess
[2018-05-09] MEDS: LACTATED RINGERS SOLUTION 1,000 ML IV SCH (20:17)
[2018-05-09] MEDS: ACETAMINOPHEN 325 MG TABLET (FP) PO PRN (21:47)
[2018-05-10] MEDS ORDERED: DEXTROSE 5%-WATER - 50 ML IVPB ONE ×4 (01:08→21:28)
[2018-05-10] MEDS ORDERED: PIPERACILLIN/TAZOBACTAM 3.375 GM VIAL IVPB ONE ×4 (01:08→21:28)
[2018-05-10] MEDS: ACETAMINOPHEN 325 MG TABLET (FP) PO PRN ×3 (01:44→19:40)
[2018-05-10] MEDS: PIPERACILLIN/TAZOB 3.375 GM 3.375 GM in DEXTROSE 5%-WATER - 50 ML IVPB SCH ×4 (02:16→21:45)
[2018-05-10 07:21] LABS: HEMATOCRIT 27.6 % (32.4-45.2); MCH 27.1 pg (25.7-33.7); MCHC 32.8 g/dl (32.0-36.0); MEAN CELL VOLUME 82.7 fl (80-96); MEAN PLT VOLUME 8.3 fl (7.5-11.1); PLATELET COUNT 201 K/MM3 (134-434); RBC 3.34 M/mm3 (3.60-5.2); RDW 13.4 % (11.6-15.6); WHITE BLOOD COUNT 9.8 K/mm3 (4.0-10.0)
[2018-05-10] MEDS ORDERED: oxyCODONE HCL 5 MG TABLET PO PRN ×2 (07:56)
--- NOTE | 2018-05-10 09:04 | PN ---
Progress Note (short form) - Note Progress Note: POD#2 Pt states that she is having loer abd pain at a level of 4 this am. Passing flatus, no BM and tolerating clears. Voiding without difficulty. Vital Signs Period Temp Pulse Resp BP Sys/Jesus Pulse Ox Last 24 Hr 97.7 F-99.2 F 59-88 16-20 103-127/58-67 TERRA-200ml serosangrenous CV: RRR Lungs: CTA b/l ABD: inc c/d/i with bandaids. mild LLQ tendneress. No distention/guarding. CBC, BMP 05/10/18 06:00 05/09/18 06:37 Microbiology 05/08/18 15:07 Peritoneal Cavity Swab Gram Stain - Final 05/08/18 15:07 Peritoneal Cavity Swab Wound Culture - Preliminary NO GROWTH OBTAINED AFTER 24 HOURS INCUBATION, REINCUBATED. A/P: 22 yo female s/p lap appy Advance diet to soft today DVT ppx with heparin SQ/ambulate/TEDS IV abx, NGTD on cultures. ID follow-up regarding antibiotics plan discharge Oral pain medications and discontinue IV fluids D/W Dr. Sky
[2018-05-10] MEDS: HEPARIN NA (PORCINE) 5,000 UNITS/ML 1ML VIAL SQ SCH ×2 (09:40→21:45)
--- NOTE | 2018-05-10 10:46 | PN ---
Physical Exam: SUBJECTIVE: Patient seen and examined by me at bedside No acute events overnight. S/P Appendectomy POD #3, Still complains of lower abdominal pain but adequate pain control with pain medications. (+) Flatus but no bowel movement yet. Has not been eating Otherwise, denies any fever, chills, nausea, vomiting, chest pain, palpitations , shortness of breath, headaches, loss of consciousness, dizziness, dysuria, hematuria, frequency. OBJECTIVE: Vital Signs Period Temp Pulse Resp BP Sys/Jesus Pulse Ox Last 24 Hr 97.9 F-99.2 F 59-88 16-20 103-127/58-67 GENERAL: The patient is awake, alert, and fully oriented, in no acute distress. EYES: Sclera anicteric, conjunctiva clear. ENT: Oropharynx clear without exudates, moist mucous membranes. LUNGS: CTA b/l, no wheezes, no crackles, no accessory muscle use. HEART: RRR, normal S1 and S2 without murmur, rub or gallop. ABDOMEN: Soft, TTP in RLQ, Slightly distended, hypoactive bowel sounds. (+) right TERRA drain in RLQ with sanguinous fluids draining. Surgical dressing with sanguinous drainage EXTREMITIES: No edema. Laboratory Results 05/10/18 06:00 WBC 9.8 RBC 3.34 L Hgb 9.0 L Hct 27.6 L MCV 82.7 MCH 27.1 MCHC 32.8 RDW 13.4 Plt Count 201 MPV 8.3 Active Medications Generic Name Dose Route Start Last Admin Trade Name Freq PRN Reason Stop Dose Admin Acetaminophen 650 mg 05/08/18 15:51 05/10/18 01:44 Tylenol - PO 650 mg Q4H PRN Administration FEVER OR PAIN LEVEL 1-5 Heparin Sodium (Porcine) 5,000 unit 05/10/18 10:00 05/10/18 09:40 Heparin - SQ 5,000 unit BID JANETTE Administration Piperacillin Sod/Tazobactam 50 mls @ 100 mls/hr 05/08/18 21:00 05/10/18 09:41 Sod 3.375 gm/ Dextrose IVPB 100 mls/hr Q6H-IV JANETTE Administration Protocol Ketorolac Tromethamine 30 mg 05/08/18 15:46 05/09/18 10:37 Toradol Injection - IVPUSH 05/13/18 15:45 30 mg Q6H PRN Administration PAIN LEVEL 6-10 Ondansetron HCl 4 mg 05/08/18 17:45 Zofran Injection IVPUSH Q6H PRN NAUSEA AND/OR VOMITING ASSESSMENT/PLAN: Patient is a 22 year old female who presented for abdominal pain and CT revealed Appendicitis. Patient admitted for further monitoring and management. Complicated Appendicitis -S/P Appendectomy POD #3 -Patient found to have appendicitis with abscess on imaging. Abscess then ruptured during appendectomy. -TERRA in place and draining (200cc overnight) -Continue Zosyn 3.375gm Q6H IVPB (Day #3) -Continue pain control with Toradol 30mg IVP Q6H PRN, Tylenol 650mg PO Q6H PRN -Advance diet to soft diet F/E/N -On no fluids -Electrolytes wnl -Soft diet Prophylaxis -Patient not ambulating and was placed on Heparin SQ TID for DVT -No GI required Disposition -Full code -Still has abdominal pain. Continue IV Abx Danette Nam [id number] Visit type - Emergency Visit Emergency Visit: Yes ED Registration Date: 05/07/18 Care time: The patient presented to the Emergency Department on the above date and was hospitalized for further evaluation of their emergent condition. - New Patient This patient is new to me today: No - Critical Care Critical Care patient: No
--- NOTE | 2018-05-10 12:44 | PN ---
Progress Note, Physician History of Present Illness: stable dressing wet still with pain - Current Medication List Current Medications: Active Medications Acetaminophen (Tylenol -) 650 mg PO Q4H PRN PRN Reason: FEVER OR PAIN LEVEL 1-5 Last Admin: 05/10/18 01:44 Dose: 650 mg Heparin Sodium (Porcine) (Heparin -) 5,000 unit SQ BID JANETTE Last Admin: 05/10/18 09:40 Dose: 5,000 unit Piperacillin Sod/Tazobactam (Sod 3.375 gm/ Dextrose) 50 mls @ 100 mls/hr IVPB Q6H-IV JANETTE; Protocol Last Admin: 05/10/18 09:41 Dose: 100 mls/hr Ketorolac Tromethamine (Toradol Injection -) 30 mg IVPUSH Q6H PRN PRN Reason: PAIN LEVEL 6-10 Stop: 05/13/18 15:45 Last Admin: 05/09/18 10:37 Dose: 30 mg Ondansetron HCl (Zofran Injection) 4 mg IVPUSH Q6H PRN PRN Reason: NAUSEA AND/OR VOMITING - Objective Vital Signs: Vital Signs Temperature 97.9 F 05/10/18 09:00 Pulse Rate 75 05/10/18 09:00 Respiratory Rate 16 05/10/18 09:00 Blood Pressure 119/61 05/10/18 09:00 O2 Sat by Pulse Oximetry (%) 100 05/08/18 17:30 Constitutional: Yes: No Distress, Calm Neck: Yes: Supple, Trachea Midline Cardiovascular: Yes: Regular Rate and Rhythm Respiratory: Yes: Regular, CTA Bilaterally Gastrointestinal: Yes: Normal Bowel Sounds, Soft, Other (drain in place) Musculoskeletal: Yes: WNL Extremities: Yes: WNL Wound/Incision: Yes: Other Neurological: Yes: Alert, Oriented Psychiatric: Yes: Alert, Oriented Labs: CBC, BMP 05/10/18 06:00 05/09/18 06:37 INR, PTT INR 1.33 (0.83-1.09) H 05/08/18 04:25 Assessment/Plan Problem List - Problems (1) Appendicitis Code(s): K37 - UNSPECIFIED APPENDICITIS abd pain leukocytosis abd abscess peritonitis patient is growing multiple organisms will await for identification of the organisms rest as per the team and surgery
--- NOTE | 2018-05-10 15:27 | PN ---
Teaching Attending Note Name of Resident: Danette Nam ATTENDING PHYSICIAN STATEMENT I saw and evaluated the patient. I reviewed the resident's note and discussed the case with the resident. I agree with the resident's findings and plan as documented with exceptions below. SUBJECTIVE: Patient seen and examined. Still with abdominal pain but better, tolerating diet , passing gas, no BM yet. OBJECTIVE: Vital Signs Period Temp Pulse Resp BP Sys/Jesus Pulse Ox Last 24 Hr 97.9 F-99.2 F 59-88 16-20 103-127/58-68 Intake & Output 05/07/18 05/08/18 05/09/18 05/10/18 23:59 23:59 23:59 23:59 Intake Total 1150 3375 Output Total 570 385 158 Balance 580 2990 -158 Weight 138 lb 138 lb General: lying in bed in no acute distress Chest: CTAB, no rales or wheezing, decreased effort Abdomen;Soft, mild distension, laparoscopic sites clean, no active discharge, LLQ drain with serosanguinous discharge, tenderness in lower abdomen and lower per-umbilical region, no voluntary or involuntary guarding or rigidity, positive bowel sounds Extremities: no edema Home Medications Medication Instructions Recorded NK [No Known Home Medication] 09/10/16 Active Medications Acetaminophen (Tylenol -) 650 mg PO Q4H PRN PRN Reason: FEVER OR PAIN LEVEL 1-5 Last Admin: 05/10/18 12:50 Dose: 650 mg Heparin Sodium (Porcine) (Heparin -) 5,000 unit SQ BID JANETTE Last Admin: 05/10/18 09:40 Dose: 5,000 unit Piperacillin Sod/Tazobactam (Sod 3.375 gm/ Dextrose) 50 mls @ 100 mls/hr IVPB Q6H-IV JANETTE; Protocol Last Admin: 05/10/18 14:12 Dose: 100 mls/hr Ketorolac Tromethamine (Toradol Injection -) 30 mg IVPUSH Q6H PRN PRN Reason: PAIN LEVEL 6-10 Stop: 05/13/18 15:45 Last Admin: 05/09/18 10:37 Dose: 30 mg Ondansetron HCl (Zofran Injection) 4 mg IVPUSH Q6H PRN PRN Reason: NAUSEA AND/OR VOMITING Laboratory Results - last 24 hr 05/10/18 06:00 WBC 9.8 RBC 3.34 L Hgb 9.0 L Hct 27.6 L MCV 82.7 MCH 27.1 MCHC 32.8 RDW 13.4 Plt Count 201 MPV 8.3 ASSESSMENT AND PLAN: 22 yof with no significant PMHX with acute gangrenous appendicitis with abscess -Acute gangrenous appendicitis with abscess s/p Laparoscopic appendectomy/LLQ drain placement 05/08/2018 Plan: Surgery input noted, PO per surgery. Drain output noted. Wound cx noted, ID input appreciated, [email or web address]. D/c opioids. Toradol/tylenol for pain control. Encourage OOB and ambulation (Discussed with patient and nursing) Incentive spirometry DVTPPX per surgery Dispo pending clinical improvement. Plan discussed with patient and nursing in detail, all questions answered.
--- NOTE | 2018-05-10 17:01 | PATH ---
Surgical Pathology Report Patient Name: DAISY PÉREZ Med. Rec. #: [id number] /Age/Gender: 1995 (Age: 22) / F Account: [id number] Location: [facility] MED/SURG Taken: 05/08/2018 Received: 05/09/2018 Reported: 05/10/2018 Physicians: MD Luis Pa M.D. Specimen(s) Received APPENDIX Clinical History Appendicitis Final Diagnosis APPENDIX, LAPAROSCOPIC APPENDECTOMY: ACUTE APPENDICITIS AND PERIAPPENDICITIS. Electronically Signed Sarah Kimble M.D. Gross Description Received in formalin, labeled "appendix," is an 8 cm. in length vermiform appendix with a stapled margin of resection and minimal attached fat. The serosa is khanna-castro with inflammation and attached exudate. Sectioning reveals a focally dilated lumen. The wall of the appendix averages 0.2 cm. in thickness. Biology Instructor sections are submitted in 2 cassettes. /05/09/2018 saudi/05/09/2018
[2018-05-11] MEDS ORDERED: PIPERACILLIN/TAZOBACTAM 3.375 GM VIAL IVPB ONE ×4 (02:10→20:35)
[2018-05-11] MEDS ORDERED: DEXTROSE 5%-WATER - 50 ML IVPB ONE ×4 (02:10→20:36)
[2018-05-11] MEDS: PIPERACILLIN/TAZOB 3.375 GM 3.375 GM in DEXTROSE 5%-WATER - 50 ML IVPB SCH ×4 (03:48→21:08)
[2018-05-11] MEDS: ACETAMINOPHEN 325 MG TABLET (FP) PO PRN ×3 (06:00→20:22)
[2018-05-11 07:56] LABS: HEMATOCRIT 28.2 % (32.4-45.2); HEMOGLOBIN 9.4 GM/dL (10.7-15.3); MCH 27.2 pg (25.7-33.7); MCHC 33.2 g/dl (32.0-36.0); MEAN CELL VOLUME 82.1 fl (80-96); MEAN PLT VOLUME 8.4 fl (7.5-11.1); PLATELET COUNT 219 K/MM3 (134-434); RBC 3.44 M/mm3 (3.60-5.2); RDW 13.5 % (11.6-15.6); WHITE BLOOD COUNT 9.4 K/mm3 (4.0-10.0)
--- NOTE | 2018-05-11 08:03 | PN ---
Physical Exam: SUBJECTIVE: Patient seen and examined by me at bedside No acute events overnight. S/P Appendectomy POD #4, Still complains of lower abdominal pain but adequate pain control with pain medications. (+) Flatus (+) one bowel movement Was unable to tolerate PO Otherwise, denies any fever, chills, nausea, vomiting, chest pain, palpitations , shortness of breath, headaches, loss of consciousness, dizziness, dysuria, hematuria, frequency. OBJECTIVE: Vital Signs Period Temp Pulse Resp BP Sys/Jesus Pulse Ox Last 24 Hr 97.9 F-98.9 F 71-93 16-20 112-140/61-89 GENERAL: The patient is awake, alert, and fully oriented, in no acute distress. EYES: Sclera anicteric, conjunctiva clear. ENT: Oropharynx clear without exudates, moist mucous membranes. LUNGS: CTA b/l, no wheezes, no crackles, no accessory muscle use. HEART: RRR, normal S1 and S2 without murmur, rub or gallop. ABDOMEN: Soft, TTP in RLQ, Slightly distended, hypoactive bowel sounds. (+) right TERRA drain in RLQ with sanguinous fluids draining. Surgical dressing with sanguinous drainage EXTREMITIES: No edema. Active Medications Generic Name Dose Route Start Last Admin Trade Name Freq PRN Reason Stop Dose Admin Acetaminophen 650 mg 05/08/18 15:51 05/11/18 06:00 Tylenol - PO 650 mg Q4H PRN Administration FEVER OR PAIN LEVEL 1-5 Heparin Sodium (Porcine) 5,000 unit 05/10/18 10:00 05/10/18 21:45 Heparin - SQ 5,000 unit BID JANETTE Administration Piperacillin Sod/Tazobactam 50 mls @ 100 mls/hr 05/08/18 21:00 05/11/18 03:48 Sod 3.375 gm/ Dextrose IVPB 100 mls/hr Q6H-IV JANETTE Administration Protocol Ketorolac Tromethamine 30 mg 05/08/18 15:46 05/09/18 10:37 Toradol Injection - IVPUSH 05/13/18 15:45 30 mg Q6H PRN Administration PAIN LEVEL 6-10 Ondansetron HCl 4 mg 05/08/18 17:45 Zofran Injection IVPUSH Q6H PRN NAUSEA AND/OR VOMITING ASSESSMENT/PLAN: Patient is a 22 year old female who presented for abdominal pain and CT revealed Appendicitis. Patient admitted for further monitoring and management. Complicated Appendicitis -S/P Appendectomy POD #4 -Patient found to have appendicitis with abscess on imaging. Abscess then ruptured during appendectomy. -TERRA in place and draining (80cc overnight) -Continue Zosyn 3.375gm Q6H IVPB (Day #4) -Continue pain control with Toradol 30mg IVP Q6H PRN, Tylenol 650mg PO Q6H PRN -Was unable to tolerate soft diet. F/E/N -On no fluids -Electrolytes wnl -Soft diet Prophylaxis -Heparin SQ TID for DVT -No GI required Disposition -Full code -Still has abdominal pain. Continue IV Abx Danette Nam [id number] Visit type - Emergency Visit Emergency Visit: Yes ED Registration Date: 05/07/18 Care time: The patient presented to the Emergency Department on the above date and was hospitalized for further evaluation of their emergent condition. - New Patient This patient is new to me today: No - Critical Care Critical Care patient: No
[2018-05-11 08:20] LABS: ANION GAP 6 MMOL/L (8-16); BLOOD UREA NITROGEN 6 mg/dL (7-18); CALCIUM 8.2 mg/dL (8.5-10.1); CHLORIDE 106 mmol/L (98-107); CO2 26 mmol/L (21-32); CREATININE 0.8 mg/dL (0.55-1.3); GLUCOSE,RANDOM 77 mg/dL (74-106); POTASSIUM 3.6 mmol/L (3.5-5.1); SODIUM 138 mmol/L (136-145)
--- NOTE | 2018-05-11 09:05 | PN ---
Progress Note (short form) - Note Progress Note: POD 3, S/P laparoscopic appendectomy Pt seen and examined. States pain is well controlled this AM/ Has been oob without issue. Voiding without issue. Passing intermittent gas, had BM yesterday (Diarrhea). Denies cp/sob, n/v/d, calf pain/edema. Vital Signs Temp 98.5 F 05/11/18 08:20 Pulse 73 05/11/18 08:20 Resp 20 05/11/18 08:20 BP 115/69 05/11/18 08:20 Pulse Ox 100 05/08/18 17:30 Intake & Output 05/10/18 05/11/18 05/11/18 23:59 11:59 23:59 Intake Total 600 Output Total 33 90 Balance 567 -90 Intake: Oral 600 Output: Drainage 33 90 Left 33 90 Other: Voiding Method Toilet Toilet Toilet # Unmeasured Voids Void 2 Bowel Movement Yes # Bowel Movements 1 CBC, BMP 05/11/18 06:00 05/11/18 06:00 Gen: Awake, alert, nad Resp: CTA b/l CV: rrr, s1s2 Abdo: Abdomen soft/nt/nd, +hypoactive bowel sounds. Dressings c/d/i, TERRA drain stripped, minimal serosanguinous drainage in reservoir (per pt just emptied Terra into toilet, reports it was "half full") A/P: 22 y/o F w/ no significant PMHx now admitted 05/07 with abdominal pain, found to have acute appendicitis, now POD 3, s/p laparoscopic appendectomy, found to have gangrenous appendicitis. Afebrile, VSS. Leukocytosis resolved. Terra output unknown overnight as pt emptied TERRA into toilet. Currently scant serosanguinous drainage in reservoir. TERRA removed by attending without issue. -Continue IV abx per ID -OOB ad cha -DVT prophylaxis with b/l scds, can give Heparin SQ if needed, per primary team -Regular diet -Pain control with Tylenol 650mg q4hrs prn, toradol 30mg q6hrs, morphine 2mg q3hrs for btp -Zofran 4mg q6hrs prn n/v -May d/c per surgery, awaiting culture to speciate per ID -Remainder of plan per primary team d/w attending Dr Sky
[2018-05-11] MEDS ORDERED: PT OWN MED DRAWER 7, Y5N ONE (09:21)
[2018-05-11] MEDS: HEPARIN NA (PORCINE) 5,000 UNITS/ML 1ML VIAL SQ SCH ×2 (09:26→22:08)
--- NOTE | 2018-05-11 10:10 | OP ---
DATE OF OPERATION: 05/08/2018 PREOPERATIVE DIAGNOSIS: Acute appendicitis. POSTOPERATIVE DIAGNOSIS: Acute appendicitis. PROCEDURE: Laparoscopic appendectomy. SURGEON: Rafa Sky MD HALAL MEAT PACKER: Niki Larios PA-C ANESTHESIA: General. OPERATIVE FINDINGS: There was acute appendicitis with possible perforation. The appendix was stuck down in the right lower quadrant and was retrocecal. The rest of the findings were unremarkable. DESCRIPTION OF PROCEDURE: The patient was placed on the operating table in supine position, and after the induction of general anesthesia, the patients abdomen was prepped with ChloraPrep and draped in sterile fashion. A time-out was taken, and a Veress needle was placed, and pneumoperitoneum established to an intraabdominal pressure of 15 mmHg. Subsequently, a 5-mm port was placed, and laparoscopy carried out, and the previously noted findings were observed. An 11-mm suprapubic port was placed as well as a left lower quadrant 5-mm port and dissection was begun in the right lower quadrant. The appendix could not be clearly identified at first because of overlying small bowel and phlegmon and the teniae were traced down to the base of the cecum where the base of the appendix was clearly identified. It was grasped, and then another 5-mm port was placed just above the one in the left lower quadrant, and additional retraction used to expose the base of the appendix. At this point, it was traced distally where it appeared to go back on itself and was retrocecal. Because of this, it was decided to remove the appendix in a retrograde fashion. The mesoappendix was identified, and a window made between the mesoappendix and the base, and the mesoappendix serially divided with the LigaSure device until an adequate window was achieved. Next, an Endo JING stapler was introduced and placed through this window and fired across the base of the appendix. The mesoappendix was then continually serially divided using the LigaSure, and the appendix mobilized using blunt dissection until it was completely free of the mesoappendix and adhesions which had formed. Once freed, the appendix was placed in an EndoCatch, and this was brought up against the abdominal wall at the 11-mm port site. Copious irrigation was carried out, and hemostasis was checked for and noted to be good. A 10-mm Hong-Chavarria drain was placed in the right lower quadrant and brought out through one of the left lower quadrant 5-mm ports, where it was secured to the skin with 2-0 silk suture. Hemostasis was again verified, and then, all residual irrigation fluid was suctioned out. Prior to this, cultures were taken and sent to Microbiology. The appendix was then brought out with the 11-mm port, and the pneumoperitoneum evacuated. The port sites were infiltrated with 0.5% Marcaine, and the defect in the suprapubic port site was closed with a single 0 Vicryl figure-of-8 suture. The skin incisions were closed with 4-0 Monocryl in a subcuticular continuous fashion. Steri-Strips and Band-Aid dressings were placed. A Biopatch was placed around the drain site and dry sterile dressings, as well. The procedure was terminated at this point, and the patient aroused from general anesthesia and transferred to the post-anesthesia care unit in stable condition, awake and alert. ESTIMATED BLOOD LOSS: 50 mL. REPLACEMENTS: Crystalloid. DRAINS: One 10-mm Hong-Chavarria. SPECIMENS: Appendix and cultures to Microbiology. I, Rafa Sky, was physically present in the operating room from the time the patient was placed on the operating table until she was transferred to the post-anesthesia care unit in my accompaniment. MD BEATRICE [id number]
--- NOTE | 2018-05-11 11:35 | PN ---
Teaching Attending Note Name of Resident: Danette Nam ATTENDING PHYSICIAN STATEMENT I saw and evaluated the patient. I reviewed the resident's note and discussed the case with the resident. I agree with the resident's findings and plan as documented with exceptions below. SUBJECTIVE: Patient seen and examined. passing gas, had a BM, tolerating PO, no new fevers/ chills or concerns. Has been ambulating. OBJECTIVE: Vital Signs Period Temp Pulse Resp BP Sys/Jesus Pulse Ox Last 24 Hr 97.9 F-98.9 F 71-93 18-20 112-140/63-89 Intake & Output 05/08/18 05/09/18 05/10/18 05/11/18 23:59 23:59 23:59 23:59 Intake Total 1150 3375 600 Output Total 570 385 168 90 Balance 580 2990 432 -90 Weight 138 lb General: no acute distress Abdomen: unchanged tenderness, no voluntary or involuntary guarding or rigidity , drain with serosanguinous fluid Active Medications Acetaminophen (Tylenol -) 650 mg PO Q4H PRN PRN Reason: FEVER OR PAIN LEVEL 1-5 Last Admin: 05/11/18 06:00 Dose: 650 mg Heparin Sodium (Porcine) (Heparin -) 5,000 unit SQ BID JANETTE Last Admin: 05/11/18 09:26 Dose: 5,000 unit Piperacillin Sod/Tazobactam (Sod 3.375 gm/ Dextrose) 50 mls @ 100 mls/hr IVPB Q6H-IV JANETTE; Protocol Last Admin: 05/11/18 09:25 Dose: 100 mls/hr Ketorolac Tromethamine (Toradol Injection -) 30 mg IVPUSH Q6H PRN PRN Reason: PAIN LEVEL 6-10 Stop: 05/13/18 15:45 Last Admin: 05/09/18 10:37 Dose: 30 mg Ondansetron HCl (Zofran Injection) 4 mg IVPUSH Q6H PRN PRN Reason: NAUSEA AND/OR VOMITING Laboratory Results - last 24 hr 05/11/18 05/11/18 06:00 06:00 WBC 9.4 RBC 3.44 L Hgb 9.4 L Hct 28.2 L MCV 82.1 MCH 27.2 MCHC 33.2 RDW 13.5 Plt Count 219 MPV 8.4 Sodium 138 Potassium 3.6 Chloride 106 Carbon Dioxide 26 Anion Gap 6 L BUN 6 L Creatinine 0.8 Creat Clearance w eGFR > 60 Random Glucose 77 Calcium 8.2 L Microbiology 05/08/18 15:07 Peritoneal Cavity Swab Gram Stain - Final 05/08/18 15:07 Peritoneal Cavity Swab Wound Culture - Preliminary Pending Organism Pending Organism#2 Pending Organism#3 Pending Organism#4 ASSESSMENT AND PLAN: 22 yof with no significant PMHX with acute gangrenous appendicitis with abscess -Acute gangrenous appendicitis with abscess s/p Laparoscopic appendectomy/LLQ drain placement 05/08/2018 Plan: Surgery input noted, PO per surgery. Drain output noted. Wound cx noted, ID input appreciated, zosyn. Toradol/tylenol for pain control. Encourage OOB and ambulation (Discussed with patient and nursing) Incentive spirometry DVTPPX per surgery Dispo pending clinical improvement, ID and surgery input. Plan discussed with patient, all questions answered.
--- NOTE | 2018-05-11 11:42 | PN ---
Progress Note, Physician History of Present Illness: patient doing well drain in place still draining a lot - Current Medication List Current Medications: Active Medications Acetaminophen (Tylenol -) 650 mg PO Q4H PRN PRN Reason: FEVER OR PAIN LEVEL 1-5 Last Admin: 05/11/18 06:00 Dose: 650 mg Heparin Sodium (Porcine) (Heparin -) 5,000 unit SQ BID JANETTE Last Admin: 05/11/18 09:26 Dose: 5,000 unit Piperacillin Sod/Tazobactam (Sod 3.375 gm/ Dextrose) 50 mls @ 100 mls/hr IVPB Q6H-IV JANETTE; Protocol Last Admin: 05/11/18 09:25 Dose: 100 mls/hr Ketorolac Tromethamine (Toradol Injection -) 30 mg IVPUSH Q6H PRN PRN Reason: PAIN LEVEL 6-10 Stop: 05/13/18 15:45 Last Admin: 05/09/18 10:37 Dose: 30 mg Ondansetron HCl (Zofran Injection) 4 mg IVPUSH Q6H PRN PRN Reason: NAUSEA AND/OR VOMITING - Objective Vital Signs: Vital Signs Temperature 98.5 F 05/11/18 08:20 Pulse Rate 73 05/11/18 08:20 Respiratory Rate 20 05/11/18 08:20 Blood Pressure 115/69 05/11/18 08:20 O2 Sat by Pulse Oximetry (%) 100 05/08/18 17:30 Constitutional: Yes: No Distress, Calm Cardiovascular: Yes: Regular Rate and Rhythm Respiratory: Yes: Regular, CTA Bilaterally Gastrointestinal: Yes: Normal Bowel Sounds, Soft, Other (drain in place) Musculoskeletal: Yes: WNL Extremities: Yes: WNL Neurological: Yes: Alert, Oriented Psychiatric: Yes: Alert, Oriented Labs: CBC, BMP 05/11/18 06:00 05/11/18 06:00 INR, PTT INR 1.33 (0.83-1.09) H 05/08/18 04:25 Assessment/Plan Problem List - Problems (1) Appendicitis Code(s): K37 - UNSPECIFIED APPENDICITIS abd pain leukocytosis abd abscess peritonitis plan awaiting for the organism patient doing well continue current mgmt and as per surgery
[2018-05-12] MEDS: PIPERACILLIN/TAZOB 3.375 GM 3.375 GM in DEXTROSE 5%-WATER - 50 ML IVPB SCH ×2 (03:57→09:07)
[2018-05-12] MEDS: ACETAMINOPHEN 325 MG TABLET (FP) PO PRN ×2 (04:27→10:18)
[2018-05-12 07:19] LABS: HEMATOCRIT 29.1 % (32.4-45.2); HEMOGLOBIN 9.6 GM/dL (10.7-15.3); MCHC 33.2 g/dl (32.0-36.0); MEAN CELL VOLUME 81.4 fl (80-96); MEAN PLT VOLUME 8.4 fl (7.5-11.1); PLATELET COUNT 235 K/MM3 (134-434); RBC 3.57 M/mm3 (3.60-5.2); RDW 13.6 % (11.6-15.6); WHITE BLOOD COUNT 11.1 K/mm3 (4.0-10.0)
--- NOTE | 2018-05-12 08:30 | PN ---
Physical Exam: SUBJECTIVE: Patient seen and examined by me at bedside Offers no complaints but requesting to take a bath. TERRA drain taken out yesterday Patient tolerating diet and has had several bowel movements Otherwise, denies any fever, chills, nausea, vomiting, chest pain, palpitations , shortness of breath, headaches, loss of consciousness, dizziness, dysuria, hematuria, frequency. OBJECTIVE: Vital Signs Period Temp Pulse Resp BP Sys/Jesus Pulse Ox Last 24 Hr 97.5 F-99.2 F 75-81 18-20 106-117/62-66 GENERAL: The patient is awake, alert, and fully oriented, in no acute distress. EYES: Sclera anicteric, conjunctiva clear. ENT: Oropharynx clear without exudates, moist mucous membranes. LUNGS: CTA b/l, no wheezes, no crackles, no accessory muscle use. HEART: RRR, normal S1 and S2 without murmur, rub or gallop. ABDOMEN: Soft, mild ttp of RLQ, normoactive bowel sounds. EXTREMITIES: No edema. Laboratory Results 05/12/18 06:30 WBC 11.1 H RBC 3.57 L Hgb 9.6 L Hct 29.1 L MCV 81.4 MCH 27.0 MCHC 33.2 RDW 13.6 Plt Count 235 MPV 8.4 Active Medications Generic Name Dose Route Start Last Admin Trade Name Freq PRN Reason Stop Dose Admin Acetaminophen 650 mg 05/08/18 15:51 05/12/18 04:27 Tylenol - PO 650 mg Q4H PRN Administration FEVER OR PAIN LEVEL 1-5 Heparin Sodium (Porcine) 5,000 unit 05/10/18 10:00 05/11/18 22:08 Heparin - SQ 5,000 unit BID JANETTE Administration Piperacillin Sod/Tazobactam 50 mls @ 100 mls/hr 05/08/18 21:00 05/12/18 03:57 Sod 3.375 gm/ Dextrose IVPB 100 mls/hr Q6H-IV JANETTE Administration Protocol Ketorolac Tromethamine 30 mg 05/08/18 15:46 05/09/18 10:37 Toradol Injection - IVPUSH 05/13/18 15:45 30 mg Q6H PRN Administration PAIN LEVEL 6-10 Ondansetron HCl 4 mg 05/08/18 17:45 Zofran Injection IVPUSH Q6H PRN NAUSEA AND/OR VOMITING ASSESSMENT/PLAN: Patient is a 22 year old female who presented for abdominal pain and CT revealed Appendicitis. Patient admitted for further monitoring and management. Complicated Appendicitis -S/P Appendectomy POD #5 -TERRA taken out yesterday -Continue Zosyn 3.375gm Q6H IVPB (Day #5) -Continue pain control with Toradol 30mg IVP Q6H PRN, Tylenol 650mg PO Q4H PRN -Tolerating diet with several bowel movements -Awaiting cultures/sensitivity F/E/N -On no fluids -Electrolytes wnl -Regular diet Prophylaxis -Heparin SQ TID for DVT -No GI required Disposition -Full code -Awaiting cultures/sensitivity Danette Nam [id number]
[2018-05-12] MEDS ORDERED: PT OWN MED DRAWER 7, Y5N ONE (09:04)
[2018-05-12] MEDS ORDERED: DEXTROSE 5%-WATER - 50 ML IVPB ONE (09:05)
[2018-05-12] MEDS ORDERED: PIPERACILLIN/TAZOBACTAM 3.375 GM VIAL IVPB ONE (09:05)
[2018-05-12] MEDS: HEPARIN NA (PORCINE) 5,000 UNITS/ML 1ML VIAL SQ SCH (09:08)
--- NOTE | 2018-05-12 09:34 | PN ---
Progress Note (short form) - Note Progress Note: POD 4, S/P laparoscopic appendectomy Pt seen and examined. States pain is well controlled this AM. Has been oob without issue. Voiding without issue. Passing gas, had BM yesterday. Denies cp/ sob, n/v/d, calf pain/edema. Vital Signs Temp 98.2 F 05/12/18 06:39 Pulse 75 05/12/18 06:39 Resp 20 05/12/18 06:39 BP 117/62 05/12/18 06:39 Pulse Ox 100 05/08/18 17:30 Intake & Output 05/11/18 05/11/18 05/12/18 11:59 23:59 11:59 Intake Total 400 100 Output Total 90 Balance -90 400 100 Intake: IVPB 200 100 Oral 200 Output: Drainage 90 Left 90 Other: Voiding Method Toilet Toilet # Unmeasured Voids Void 1 3 Bowel Movement Yes Yes # Bowel Movements 1 1 CBC, BMP 05/12/18 06:30 05/11/18 06:00 Gen: Awake, alert, nad Resp: CTA b/l CV: rrr, s1s2 Abdo: Abdomen soft/nt/nd, +hypoactive bowel sounds. Dressings c/d/i. A/P: 22 y/o F w/ no significant PMHx now admitted 05/07 with abdominal pain, found to have acute appendicitis, now POD 4, s/p laparoscopic appendectomy, found to have gangrenous appendicitis. Afebrile, VSS. -Continue IV abx per ID -May d/c per surgery, awaiting culture to speciate per ID -Remainder of plan per primary team d/w attending Dr Sky
--- NOTE | 2018-05-12 10:52 | PN ---
Progress Note, Physician History of Present Illness: patient stable no new issues - Current Medication List Current Medications: Active Medications Acetaminophen (Tylenol -) 650 mg PO Q4H PRN PRN Reason: FEVER OR PAIN LEVEL 1-5 Last Admin: 05/12/18 10:18 Dose: 650 mg Heparin Sodium (Porcine) (Heparin -) 5,000 unit SQ BID JANETTE Last Admin: 05/12/18 09:08 Dose: 5,000 unit Piperacillin Sod/Tazobactam (Sod 3.375 gm/ Dextrose) 50 mls @ 100 mls/hr IVPB Q6H-IV JANETTE; Protocol Last Admin: 05/12/18 09:07 Dose: 100 mls/hr Ketorolac Tromethamine (Toradol Injection -) 30 mg IVPUSH Q6H PRN PRN Reason: PAIN LEVEL 6-10 Stop: 05/13/18 15:45 Last Admin: 05/09/18 10:37 Dose: 30 mg Ondansetron HCl (Zofran Injection) 4 mg IVPUSH Q6H PRN PRN Reason: NAUSEA AND/OR VOMITING - Objective Vital Signs: Vital Signs Temperature 98.2 F 05/12/18 06:39 Pulse Rate 75 05/12/18 06:39 Respiratory Rate 20 05/12/18 06:39 Blood Pressure 117/62 05/12/18 06:39 O2 Sat by Pulse Oximetry (%) 100 05/08/18 17:30 Constitutional: Yes: No Distress, Calm Eyes: Yes: Conjunctiva Clear Neck: Yes: Supple, Trachea Midline Cardiovascular: Yes: Regular Rate and Rhythm Respiratory: Yes: Regular, CTA Bilaterally Gastrointestinal: Yes: Normal Bowel Sounds Musculoskeletal: Yes: WNL Extremities: Yes: WNL Wound/Incision: Yes: Clean/Dry Neurological: Yes: Alert, Oriented Psychiatric: Yes: Alert, Oriented Labs: CBC, BMP 05/12/18 06:30 05/11/18 06:00 INR, PTT INR 1.33 (0.83-1.09) H 05/08/18 04:25 Assessment/Plan Problem List - Problems (1) Appendicitis Code(s): K37 - UNSPECIFIED APPENDICITIS abd pain leukocytosis abd abscess peritonitis plan one organism still pending we can switch patient to oral augmentin 500 mg po bid for another 7 days rest as per the team
[2018-05-12 10:53] VITALS: BP 121/68; PULSE 74; TEMP 98
--- NOTE | 2018-05-12 11:03 | PN ---
Teaching Attending Note Name of Resident: Danette Nam ATTENDING PHYSICIAN STATEMENT I saw and evaluated the patient. I reviewed the resident's note and discussed the case with the resident. I agree with the resident's findings and plan as documented with exceptions below. SUBJECTIVE: Patient seen and examined. Feeling well, passing gas, moving bowels, tolerating diet, no new fevers, chills or concerns. OBJECTIVE: Vital Signs Period Temp Pulse Resp BP Sys/Jesus Pulse Ox Last 24 Hr 97.5 F-99.2 F 74-81 18-20 106-121/62-68 Intake & Output 05/09/18 05/10/18 05/11/18 05/12/18 23:59 23:59 23:59 23:59 Intake Total 3375 600 400 100 Output Total 385 168 90 Balance 2990 432 310 100 General: sitting in chair in no acute distress Chest: CTAB, no rales or wheezing Abdomen;Soft, minimal tenderness around surgical site, otherwise non tender throughout, no voluntary or involuntary guarding or rigidity, positive bowel sounds present Extremities: no edema Home Medications Medication Instructions Recorded NK [No Known Home Medication] 09/10/16 Active Medications Acetaminophen (Tylenol -) 650 mg PO Q4H PRN PRN Reason: FEVER OR PAIN LEVEL 1-5 Last Admin: 05/12/18 10:18 Dose: 650 mg Heparin Sodium (Porcine) (Heparin -) 5,000 unit SQ BID JANETTE Last Admin: 05/12/18 09:08 Dose: 5,000 unit Piperacillin Sod/Tazobactam (Sod 3.375 gm/ Dextrose) 50 mls @ 100 mls/hr IVPB Q6H-IV JANETTE; Protocol Last Admin: 05/12/18 09:07 Dose: 100 mls/hr Ketorolac Tromethamine (Toradol Injection -) 30 mg IVPUSH Q6H PRN PRN Reason: PAIN LEVEL 6-10 Stop: 05/13/18 15:45 Last Admin: 05/09/18 10:37 Dose: 30 mg Ondansetron HCl (Zofran Injection) 4 mg IVPUSH Q6H PRN PRN Reason: NAUSEA AND/OR VOMITING Laboratory Results - last 24 hr 05/12/18 06:30 WBC 11.1 H RBC 3.57 L Hgb 9.6 L Hct 29.1 L MCV 81.4 MCH 27.0 MCHC 33.2 RDW 13.6 Plt Count 235 MPV 8.4 Microbiology 05/08/18 15:07 Peritoneal Cavity Swab Gram Stain - Final 05/08/18 15:07 Peritoneal Cavity Swab Wound Culture - Preliminary Streptococcus Constellatus Pending Organism#3 Beta Hem Streptococcus Group C ASSESSMENT AND PLAN: 22 yof with no significant PMHX with acute gangrenous appendicitis with abscess -Acute gangrenous appendicitis with abscess s/p Laparoscopic appendectomy/LLQ drain placement 05/08/2018 Plan: Drain removed Afebrile, abdominal exam benign Tolerating diet, moving bowels, ambulating Wound cx noted Discussed with martha Branch to transition to augmentin for [address] Sky, dk for dc from surgical standpoint D/c home on po augmentin with outpatient surgery follow up Plan discussed with patient and nursing, all questions answered.
--- NOTE | 2018-05-12 11:48 | DS ---
Physical Exam: SUBJECTIVE:Patient seen and examined by me at bedside Offers no complaints but requesting to take a bath. TERRA drain taken out yesterday Patient tolerating diet and has had several bowel movements Otherwise, denies any fever, chills, nausea, vomiting, chest pain, palpitations , shortness of breath, headaches, loss of consciousness, dizziness, dysuria, hematuria, frequency. OBJECTIVE: Vital Signs Period Temp Pulse Resp BP Sys/Jesus Pulse Ox Last 24 Hr 97.5 F-99.2 F 74-81 18-20 106-121/62-68 PHYSICAL EXAM GENERAL: The patient is awake, alert, and fully oriented, in no acute distress. EYES: Sclera anicteric, conjunctiva clear. ENT: Oropharynx clear without exudates, moist mucous membranes. LUNGS: CTA b/l, no wheezes, no crackles, no accessory muscle use. HEART: RRR, normal S1 and S2 without murmur, rub or gallop. ABDOMEN: Soft, mild ttp of RLQ, normoactive bowel sounds. EXTREMITIES: No edema. LABS Laboratory Results 05/12/18 06:30 WBC 11.1 H RBC 3.57 L Hgb 9.6 L Hct 29.1 L MCV 81.4 MCH 27.0 MCHC 33.2 RDW 13.6 Plt Count 235 MPV 8.4 Microbiology 05/08/18 15:07 Peritoneal Cavity Swab Gram Stain - Final 05/08/18 15:07 Peritoneal Cavity Swab Wound Culture - Preliminary Streptococcus Constellatus Pending Organism#3 Beta Hem Streptococcus Group C PRE-HOSPITAL COURSE: Patient is a 22 year old female with no significant PMHx who presented for diffuse abdominal pain associated with nausea, vomiting and diarrhea. CT of the Abdomen done and revealed complicated Appendicitis. Patient was admitted for further management. HOSPITAL COURSE: Throughout hospitalization, patient was placed on IV antibiotics and was taken to the OR for laparoscopic appendectomy. During procedure, patient was found to have gangrenous appendicitis and abscess. During the procedure, the abscess was ruptured and a drain was placed. Patient initially had high output from the drain but improved gradually. Patient remained on antibiotics and improved. She passed flatus, had several bowel movements, and tolerated PO. Wound cultures revealed three cultures and ID recommended one week course of Augmentin. Patient medically cleared and discharged with follow up with Surgeon , Dr. Sky. Date of Admission:05/07/18 Date of Discharge: 05/12/18 Minutes to complete discharge: 45 Discharge Summary Reason For Visit: APPENDICITIS Current Active Problems Appendicitis (Acute) Condition: Stable - Instructions Diet, Activity, Other Instructions: Dr. Sky Discharge Instructions Post Operative Instructions Physical activity Resume your normal everyday activity as tolerated no heavy lifting or exercise until seen by your surgeon. You may walk unlimited amounts of and climb stairs. You may resume driving the car when you feel safe and comfortable behind the wheel. Wound care If you have a bandage, leave it on, and keep dry for 48 hours. After that time discard the outer bandage. If there are tapes on the skin under the outer bandage, leave them in place. They will peel off in the next 7 to 10 days. Do Not peel them off. You may shower 2 days after surgery (only if drain is out) but do not submerge the incisions. If there are tapes present on the skin, they can get wet. Do not apply lotion or ointments. Diet There are no dietary restrictions. Eat healthy, high-fiber foods. Drink 6 to 8 glasses of liquid each day. This will assist in keeping your bowels are regular. Pain management You may take Tylenol or acetaminophen or Ibuprofen (for example, Motrin, Advil etc.) Any pain prescription medication ordered should be taken as prescribed for moderate to severe pain. Call Dr. Sky for any of the following: Severe pain not relieved by medication Fever of 101 or higher Excessive bleeding or drainage on dressing Inability to urinate If you experience any chest pain or shortness of breath please seek emergency treatment immediately. Call the office at [phone] for a post operative appointment in 7 - 10 days. MEDICATIONS: -You will be taking a medication called Augmentin two times a day for one week. Please pick it up from your pharmacy -For pain, you may alternate between Tylenol and Motrin. Referrals: Rafa Sky MD [Staff Physician] - Adrienne Quinn MD [Staff Physician] - Disposition: HOME - Home Medications Comprehensive Discharge Medication List: Ambulatory Orders Acetaminophen [Tylenol .Regular Strength -] 650 mg PO Q4H PRN tablet 05/12/18 Amox-Tr/K Cl [Augmentin - 875Mg Tablet] 1 tab PO BID #14 tablet 05/12/18 This patient is new to me today: No Emergency Visit: Yes ED Registration Date: 05/07/18 Care time: The patient presented to the Emergency Department on the above date and was hospitalized for further evaluation of their emergent condition. Critical Care patient: No - Discharge Referral Referred to [facility] No
== END 2018-05-12 14:19 | disposition home or self-care (01) | DRG 343 ==
LOC: JER 17:04 → JERBED 23:41 → J8W 05-08 06:21
PROVIDERS: ADMIT Internal Medicine; ATTEND Hospitalist
PROC: 0DTJ4ZZ Resection of Appendix, Percutaneous Endoscopic Approach (ICD-10-PCS; principal; 2018-05-08 16:00)
DX: K35.80 Unspecified acute appendicitis (principal); D72.829 Elevated white blood cell count, unspecified
CPT/HCPCS: 36415; 74177-TC; 76856-TC; 80048; 80053; 81003; 83690; 83735; 84100; 84703; 85025; 85027; 85610; 85730; 86850; 86900; 86901; 87070; 87076; 87077; 87205; 88304-TC; 93005; 93010; 94010; 94760; 99283-25; J0131; J1644; J7030

== ENCOUNTER 2020-10-31 14:10 | Emergency (ER) | payer OTHER ==
[2020-10-31 14:46] VITALS: BP 139/84; PULSE 95; TEMP 99; BMI 21.2
== END 2020-10-31 16:09 | disposition home or self-care (01) ==
LOC: FER 14:10
DX: S22.31XA Fracture of one rib, right side, initial encounter for closed fracture (principal)
CPT/HCPCS: 71101-TC-RT-FY; 99283-25

== ENCOUNTER 2021-02-27 15:52 | Emergency (ER) | payer BC ==
[2021-02-27 16:02] VITALS: BP 135/86; PULSE 73; TEMP 99; BMI 21.2
[2021-02-27] MEDS ORDERED: ACETAMINOPHEN 500 MG TABLET (FP) PO ONE (16:10)
[2021-02-27 16:57] LABS: MCHC 31.9 g/dl (32.0-36.0); MEAN PLT VOLUME 8.3 fl (7.5-11.1)
[2021-02-27] MEDS ORDERED: ACETAMINOPHEN 500 MG TABLET (FP) ONE (17:05)
[2021-02-27 17:09] LABS: ALBUMIN 4.7 g/dl (3.4-5.0); BILIRUBIN,TOTAL 0.8 mg/dl (0.2-1); CALCIUM 9.3 mg/dl (8.5-10); CREATININE 0.9 mg/dl (0.55-1.3); TOT PROT 8.1 g/dl (6.4-8.2)
[2021-02-27] MEDS ORDERED: POTASSIUM CHLORIDE TABS 20 MEQ TABLET.ER (FP) PO ONE ×2 (17:11→17:49)
[2021-02-27 17:12] LABS: BASO % 3.6 % (0-2.0); EOS % 4.5 % (0-4.5); HEMOGLOBIN 12.8 GM/dl (10.7-15.3); LYMPH % 15.4 % (8-40); MCH 27.1 pg (25.7-33.7); MEAN CELL VOLUME 85.1 fl (80-96); MONO % 11.2 % (3.8-10.2); NEUT % 65.3 % (42.8-82.8); PLATELET COUNT 236 10^3/uL (134-434); RBC 4.71 M/mm3 (3.60-5.2); RDW 12.5 % (11.6-15.6); WHITE BLOOD COUNT 7.3 K/mm3 (4.0-10.8)
== END 2021-02-27 18:07 | disposition home or self-care (01) ==
LOC: FER 15:52
DX: E87.6 Hypokalemia (principal); R10.2 Pelvic and perineal pain
CPT/HCPCS: 36415; 76830-TC; 80053; 81003; 81015; 84703; 85025; 86850; 86900; 86901; 99285-25

== ENCOUNTER 2021-08-09 13:57 | Emergency (ER) | payer BC, OTHER ==
[2021-08-09 14:12] VITALS: BP 134/89; PULSE 76; TEMP 99.3; BMI 21.7
[2021-08-09] MEDS ORDERED: ACETAMINOPHEN 325 MG TABLET (FP) PO ONE (14:29)
[2021-08-09] MEDS ORDERED: METOCLOPRAMIDE HCL 10 MG TABLET (FP) PO ONE ×2 (14:30→15:03)
[2021-08-09] MEDS ORDERED: ACETAMINOPHEN 325 MG TABLET (FP) ONE (15:04)
== END 2021-08-09 16:21 | disposition home or self-care (01) ==
LOC: FER 13:57
DX: S09.90XA Unspecified injury of head, initial encounter (principal); G44.209 Tension-type headache, unspecified, not intractable; W22.8XXA Striking against or struck by other objects, initial encounter
CPT/HCPCS: 70450-TC; 84703; 99284-25

== ENCOUNTER 2022-12-16 09:08 | Emergency (ER) | payer OTHER ==
[2022-12-16 09:18] VITALS: BP 128/74; PULSE 82; RESP 18; TEMP 99.2; BMI 27.3
[2022-12-16] MEDS ORDERED: IBUPROFEN 600 MG TABLET (FP) PO ONE ×2 (10:12→10:40)
== END 2022-12-16 11:56 | disposition home or self-care (01) ==
LOC: JERFT 09:08
DX: M25.531 Pain in right wrist (principal); M79.671 Pain in right foot; S63.501A Unspecified sprain of right wrist, initial encounter; S90.31XA Contusion of right foot, initial encounter; W20.8XXA Other cause of strike by thrown, projected or falling object, initial encounter
CPT/HCPCS: 73110-TC-RT-FY; 73630-TC-RT-FY; 99283-25

== ENCOUNTER 2023-11-03 09:40 | Emergency (ER) | payer OTHER ==
[2023-11-03 09:49] VITALS: BP 132/90; PULSE 72; RESP 12; TEMP 97.7; BMI 25.8
[2023-11-03] MEDS ORDERED: LIDOCAINE 4% PATCH TP ONE (10:18)
[2023-11-03] MEDS ORDERED: IBUPROFEN 600 MG TABLET (FP) PO ONE (10:18)
[2023-11-03] MEDS: IBUPROFEN 600 MG TABLET (FP) PO ONE (10:24)
[2023-11-03] MEDS: LIDOCAINE 4% PATCH TP ONE (10:24)
[2023-11-03] MEDS ORDERED: LIDOCAINE PATCH REMOVAL MC ONE (22:00)
== END 2023-11-03 11:33 | disposition home or self-care (01) ==
LOC: JERFT 09:40
DX: S20.212A Contusion of left front wall of thorax, initial encounter (principal); W10.8XXA Fall (on) (from) other stairs and steps, initial encounter
CPT/HCPCS: 71101-TC-LT-FY; 99283-25

== ENCOUNTER 2024-11-10 08:27 | Emergency (ER) | payer OTHER ==
[2024-11-10 08:36] VITALS: BP 119/76; PULSE 80; RESP 20; TEMP 98.6; BMI 27.3
[2024-11-10] MEDS ORDERED: KETOROLAC TROMETHAMINE 30 MG/1 ML VIAL ONE (08:55)
[2024-11-10] MEDS ORDERED: LIDOCAINE 4% PATCH TP ONE ×2 (08:55→08:58)
[2024-11-10] MEDS: KETOROLAC TROMETHAMINE 30 MG/1 ML VIAL IM ONE (08:59)
[2024-11-10] MEDS: LIDOCAINE 4% PATCH TP ONE (09:00)
[2024-11-10] MEDS ORDERED: LIDOCAINE PATCH REMOVAL MC SCH (22:00)
== END 2024-11-10 09:08 | disposition home or self-care (01) ==
LOC: JERFT 08:27 → JER 08:27 → JERFT 09:08
PROC: 3E0233Z Introduction of Anti-inflammatory into Muscle, Percutaneous Approach (ICD-10-PCS; principal; 2024-11-10)
DX: S29.012A Strain of muscle and tendon of back wall of thorax, initial encounter (principal); X50.0XXA Overexertion from strenuous movement or load, initial encounter; Y99.0 Civilian activity done for income or pay
CPT/HCPCS: 99284-25